=== PATIENT | female | born 1945 | race Caucasian/White ===

== ENCOUNTER → 2019-05-09 | Day surgery (SDC) | payer MEDICARE, OTHER ==
--- NOTE | 2019-05-08 04:55 | Pre Op History & Physical ---
DATE OF SURGERY: May 10, 2019. CHIEF COMPLAINT: Lesion in the soft palate and rule out Sjogren syndrome. HISTORY OF PRESENT ILLNESS: This 74-year-old female was noted to have a lesion in the soft palate for about three months. Lesion has been increasing in size and painful. The patient denies any trauma to that area. The patient is complaining of dysphagia with no odynophagia. She has been treated with different antibiotics including Zithromax, Flagyl, Medrol Dosepak and also Diflucan with no improvement. The patient also has history of fibromyalgia with history of dry eyes. CT scan of the neck that was done showed no obvious abnormality. The patient smokes a few cigars a day and is a social drinker. On examination, patient's vital signs were within normal limits. REVIEW OF SYSTEMS: System review showed no recent cardiovascular, respiratory, or GI problem. PAST MEDICAL HISTORY: The patient has a history of peptic ulcer disease, hypertension. She has a history of skin cancer removed. PAST SURGICAL HISTORY: The patient has previous C-spine surgery, lumbar spine surgery, foot and ankle surgery, hysterectomy, bladder suspension, appendectomy, and cholecystectomy. ALLERGIES: THE PATIENT IS ALLERGIC TO DEMEROL, CODEINE, PENICILLIN, AND SULFA. MEDICATIONS: She is on Prilosec, Celexa, amlodipine. SOCIAL HISTORY: She smokes a few cigars a day and is a social drinker. FAMILY HISTORY: Noncontributory. PHYSICAL EXAMINATION: VITAL SIGNS: On examination, patient's vital signs were within normal limits. HEENT: Ear exam showed normal tympanic membranes bilaterally. Nasal exam show deviated nasal septum to the left side about 30%. Oropharynx and oral cavity showed the patient has a lesion in the soft palate, paramedian on the right side about a cm in diameter with a few lesions together. NECK: Showed no lymph node or thyroid palpable. CHEST: Showed good air entry bilaterally. CARDIOVASCULAR: Showed S1 and S2. No murmur noted. ASSESSMENT AND PLAN: Mrs. Pandya has a lesion in the soft palate, which is persistent and uncomfortable. The patient also has a history of dry eyes and dry mouth with fibromyalgia. The suggested treatment is biopsy of the minor salivary gland to rule out Sjogren syndrome. Suggested treatment is panendoscopy, excision biopsy of lesion of the soft palate with appropriate closure and biopsy of the minor salivary gland and other necessary procedure. Complication of procedure includes, but not limited to bleeding, infection, perforation of the esophagus, pneumomediastinum, mediastinitis, airway compromise, persistent recurrence of the problem. Alternatives will be continue observation, continue antibiotic therapy, biopsy of lesion in the office setting. The patient has elected to undergo surgical procedure. MD BUTCH Steinberg/ASHLEYL /[id number]
[~2019-05-09] MED LIST: AMLODIPINE BESY10 MG PO; ATORVASTATIN CA20 MG PO; BACLOFEN10 MG PO; CELEXA20 MG PO; DEXAMETHASONE SOD PHOS INJ 4 MG/ML VIAL ONE; FENTANYL CITRATE/PF 100MCG/2 ML INJ ONE; GLYCOPYRROLATE INJ 1MG/ 5 ML SYR ONE; LIDOCAINE 1% W/EPINEPHRINE 20 ML VIAL ONE; LIDOCAINE HCL 2% LOCAL INJ 5 ML SDV VIAL INJ ONE; MIDAZOLAM HCL 2 MG/2 ML VIAL ONE; NEOSTIGMINE 5 MG/5ML SYR ONE; ONDANSETRON HCL INJ 2MG/ML 2ML 2 MG/ML VIAL ONE; PRILOSEC OTC20 MG PO; PROMETHAZINE HCL (IM) 25 MG/ML VIAL ONE; PROPOFOL IV EMULSION 10 MG/ML 20 ML VIAL ONE; ROCURONIUM BROMIDE 10 MG/ML 5ML VIAL ONE; SEVOFLURANE INHAL SOLN 250 ML PEN BTL ONE; TETRACYCLINE H250 MG PO
--- OUTSIDE RECORDS SUMMARY | 2019-05-09 08:41 | XMS REPORT ---
Author Author [facility] Address Unknown Phone Unavailable Care Team Providers Care Technical System Analyst Name Role Phone MaxxPeng collins Unavailable Unavailable Danitza Posey Unavailable Unavailable Viji, Devon Unavailable Unavailable Russel Stephenie Unavailable Unavailable Kevin Mckeon Unavailable Unavailable Moustapha Segura Unavailable Unavailable Irabadriel, FNPC Alisa Unavailable Unavailable Earl Nelson Unavailable Unavailable Benja Liu Unavailable Unavailable Talib Monet Unavailable Unavailable Luz Lopez Unavailable Unavailable Problems This patient has no known problems. Allergies, Adverse Reactions, Alerts This patient has no known allergies or adverse reactions. Medications This patient has no known medications. Results Test Description Test Time Test Comments Text Results Atomic Results Result Comments Comprehensive metabolic panel 2019-05-03 16:19:00 Serum or plasma sodium measurement (moles/volume) (test vqtm=8214-9) 143 mmol/L 136-145 Potassium [Moles/volume] in Serum or Plasma (test kjwg=2266-4) 3.8 mmol/L 3.5-5.1 Chloride [Moles/volume] in Serum or Plasma (test wsgv=6224-8) 107 mmol/L 98-107 Carbon dioxide, total [Moles/volume] in Serum or Plasma (test abxe=2304-8) 28 mmol/L 21-32 Glucose [Mass/volume] in Serum or Plasma (test oupj=7694-3) 94 mg/dL 74-106 Urea nitrogen [Mass/volume] in Serum or Plasma (test wxne=4824-1) 15 mg/dL 7-18 Creatinine [Mass/volume] in Serum or Plasma (test ofij=0385-8) 0.93 mg/dL 0.55-1.3 Glomerular Filtration Rate (test code=GFR) 59 mL =/>90 FOR CHRONIC KIDNEY DISEASE: GFR STAGE DESCRIPTION=/>90 STAGE 1 NORMAL--OR-- MINIMAL KIDNEY DAMAGE WITH NORMAL GFR 60-89 STAGE 2 MILD DECREASE IN GFR 30-59 STAGE 3 MODERATE DECREASE IN GFR 15-29 STAGE 4 SEVERE DECREASE IN GFR <15 STAGE 5 KIDNEY FAILURE The Glomerular Filtration Rate (GFR) has been calculated using the IDMS-Traceable MDRD Study Equation. Aspartate aminotransferase [Enzymatic activity/volume] in Serum or Plasma by With P-5 (test ystt=68313-9) 14 U/L 15-37 Alanine aminotransferase [Enzymatic activity/volume] in Serum or Plasma by With P-5'- (test zeta=3756-4) 18 U/L 12-78 Alkaline phosphatase [Enzymatic activity/volume] in Serum or Plasma (test tepm=7491-8) 89 U/L 45-117 Bilirubin.total [Mass/volume] in Serum or Plasma (test lmjg=1409-5) 0.4 mg/dL 0.2-1.0 Calcium [Mass/volume] in Serum or Plasma (test oqde=75929-3) 9.0 mg/dL 8.5-10.1 Protein [Mass/volume] in Serum or Plasma (test pqzd=3323-4) 7.3 g/dL 6.4-8.2 Albumin [Mass/volume] in Serum or Plasma by Bromocresol purple (BCP) dye binding meth (test rret=00704-9) 3.9 g/dL 3.4-5.0 Globulin (test code=GLOB) 3.4 g/dL 2.3-3.5 Albumin/Globulin Ratio (test code=A/G) 1.1 1.1-1.8 Prothrombin time (PT) with international normalized ratio (INR)2019-05-03 16:00:00* Test Item Value Reference Range Comments PT Prothrombin Time (test code=PROTIME) 13.0 s 9.5-12.5 INR in Blood by Coagulation assay (test dkud=32427-8) 1.11 Monitor pts using INR value (not prothrombin time) INR Coumadin Therapy: Low Range (prophylaxis) 2.0-3.0 High Range (high risk of clot formation) 2.5-3.5 PTT, Activated Partial Iuiigb4008-15-13 16:00:00* Test Item Value Reference Range Comments PTT, Activated Partial Thromb (test code=PTT) 32.1 s 24.3-36.9 Complete blood count (CBC) with automated white blood cell (WBC) differential 2019-05-03 15:50:00* Test Item Value Reference Range Comments White blood cell count (test exce=TDM5180) 10.8 4.3-10.9 Blood erythrocytes count (number/volume) (test dhmx=41983-2) 4.10 M/ul 3.86-4.86 Hemoglobin measurement (test dqqf=ASV1999) 11.7 g/dL 12.0-15.0 Blood hematocrit (volume fraction) (test pern=58841-1) 34.6 % 36.0-45.0 MCV (test zspp=WDI3451) 84.4 fL 80-100 28.6 MCHC (test code=MCHC) 33.9 g/dL 32.0-36.0 Platelets (test code=PLT) 266 152-406 Red Cell Distribution Width (test code=RDW) 15.0 % 12.1-15.2 Blood platelet mean volume (test wzjw=67090-6) 8.4 fL 7.6-11.3 Neutrophils % (test code=ALVIN%) 66.3 % 41.7-73.7 Lymphocytes/leuk NFr Bld (test ajwu=30035-4) 24.4 % 15.3-44.8 Monocyte percentage (test tytq=VVA7943) 7.4 % 3.3-12.3 1.4 Basophil % (test tsad=05704-3) 0.5 % 0-1.3 Absolute neutrophil count (test miou=ONR4922) 7.2 1.8-8.0 Absolute lymphocyte count (test niqq=48355-3) 2.6 0.7-4.9 Absolute monocyte count (test xrim=SOA1831) 0.8 0.1-1.3 Absolute Eosinophils (test code=EOA) 0.2 0-0.5 Absolute Basophils (test code=BASA) 0.1 0-0.5 Magnesium [Mass/volume] in Serum or Yvtpkt4540-27-49 16:17:00* Test Item Value Reference Range Comments Magnesium [Mass/volume] in Serum or Plasma (test dcwp=72832-4) 2.0 mg/dL 1.8-2.4 Vitamin B12 Dsnmh1442-13-57 16:17:00* Test Item Value Reference Range Comments Vitamin B12 Level (test code=B12) 566 pg/mL 193-986 Anaerobic uhgzlxd9114-45-86 10:02:00Primary Language Bahamian Comment PERIRECTAL ABSCESWSNO ANAEROBES GROWN.^NO ANAEROBES GROWN.^LGram gnpkl7164-14-00 10:02:00* Test Item Value Reference Range Comments NO ORGANISMS SEEN (test code=NO ORGAN) . NO WBCS SEEN (test code=NO WBCS) . Primary Language Bahamian Comment PERIRECTAL ABSCESWSBacterial culture w ID 2019-04-07 08:33:00* Test Item Value Reference Range Comments Bacterial culture w ID (test vrcs=1880-5) 1+MIXED SKIN KAPIL. Primary Language Bahamian Comment PERIRECTAL ABSCESSSoft Tissue Neck W/Contr 2019-04-06 13:43:00[facility] [place] [address] [facility] REPORT Name: ERICA KWONG Acct Number: [id number] :1945 Age:74 Sex:F Ord Phys: Peng Steele MD Unit Number: [id number] [facility] Dr: Status: REG REF RAD Exam Date: 04/06/19 EXAM DESCRIPTION: CT - Soft Tissue Neck W/Contr CLINICAL HISTORY: R22.0 COMPARISON: Soft Tissue Neck W/Contr dated 03/01/2019; CT HEAD CSPINE MPR WO CONTRAST dated 05/23/[address] scans are performed using dose optimization technique as appropriate and may include automated exposure control or mA/KV adjustment according to patient size. FINDINGS: Nasopharyngeal tissues are normal in appearance. Fossa Rosenmller are normal. Parapharyngeal fat triangles are symmetric. Tongue base structures are normal. Clinical history indicates presence nodules along the roof of the mouth. The roof of the mouth is limited in assessment on the study due to dental hardware streak artifact, however no gross abnormality is discerned in the region. The hard palate appears normal. Epiglottis and aryepiglottic folds are normal. Piriform sinuses are well aerated. The vocal cords are normal in appearance. Thyroid gland is normal in size. Salivary glands are normal in appearance. A BB marker is seen al anibal the left aspect of the neck correlating to the left parotid gland. There is no abnormality within the parotid gland seen. A few mildly prominent jugul odigastric chain lymph nodes are present. Upper lung hanley appear mildly emphys ematous but clear. No worrisome bone finding. Cervical hardware plate is p resent. IMPRESSION: BB marker is been placed by technologist along the le ft aspect of the neck at the site of clinical concern, demonstrating no patholog ic finding in the region. A normal size and appearance of left parotid gland is seen in this region. Suboptimal visualization of the roof of the mouth due to streak artifact from dental hardware. Grossly, no aggressive abnormality is seen in the region. The hard palate appears normal. Signed By: Marsha Vargas MD Signed AT: 04/06/19 1343 Basic Metabolic Lpbxw9700-75-36 11:10:00* Test Item Value Reference Range Comments Serum or plasma sodium measurement (moles/volume) (test rhpj=8489-9) 144 mmol/L 136-145 Potassium [Moles/volume] in Serum or Plasma (test iuan=9489-0) 3.9 mmol/L 3.5-5.1 Chloride [Moles/volume] in Serum or Plasma (test bogw=1707-9) 109 mmol/L 98-107 Carbon dioxide, total [Moles/volume] in Serum or Plasma (test vyep=5504-3) 29 mmol/L 21-32 Glucose [Mass/volume] in Serum or Plasma (test ysjp=6292-5) 118 mg/dL 74-106 Urea nitrogen [Mass/volume] in Serum or Plasma (test pgmo=7734-6) 13 mg/dL 7-18 Creatinine [Mass/volume] in Serum or Plasma (test pcjr=1011-7) 0.96 mg/dL 0.55-1.3 Glomerular Filtration Rate (test code=GFR) 57 mL =/>90 FOR CHRONIC KIDNEY DISEASE: GFR STAGE DESCRIPTION=/>90 STAGE 1 NORMAL--OR-- MINIMAL KIDNEY DAMAGE WITH NORMAL GFR 60-89 STAGE 2 MILD DECREASE IN GFR 30-59 STAGE 3 MODERATE DECREASE IN GFR 15-29 STAGE 4 SEVERE DECREASE IN GFR <15 STAGE 5 KIDNEY FAILURE The Glomerular Filtration Rate (GFR) has been calculated using the IDMS-Traceable MDRD Study Equation. Calcium [Mass/volume] in Serum or Plasma (test nmye=66675-0) 9.0 mg/dL 8.5-10.1 Primary Language EnglishComplete blood count (CBC) with automated white blood cell (WBC) shbkitzzgwao0355-70-41 10:59:00* Test Item Value Reference Range Comments White blood cell count (test vehe=XFP8719) 8.4 4.3-10.9 Blood erythrocytes count (number/volume) (test mrnb=74259-3) 4.03 M/ul 3.86-4.86 Hemoglobin measurement (test ekjf=KZC3082) 11.3 g/dL 12.0-15.0 Blood hematocrit (volume fraction) (test fboi=73525-7) 34.5 % 36.0-45.0 MCV (test mxit=QZO0334) 85.6 fL 80-100 28.1 MCHC (test code=MCHC) 32.8 g/dL 32.0-36.0 Platelets (test code=PLT) 230 152-406 Red Cell Distribution Width (test code=RDW) 14.9 % 12.1-15.2 Blood platelet mean volume (test wonf=34508-9) 8.4 fL 7.6-11.3 Neutrophils % (test code=ALVIN%) 62.7 % 41.7-73.7 Lymphocytes/leuk NFr Bld (test cluv=06164-2) 24.6 % 15.3-44.8 Monocyte percentage (test hvit=APO1737) 10.4 % 3.3-12.3 1.8 Basophil % (test juvs=50932-0) 0.5 % 0-1.3 Absolute neutrophil count (test amcm=YWR5627) 5.3 1.8-8.0 Absolute lymphocyte count (test jdtl=45214-8) 2.1 0.7-4.9 Absolute monocyte count (test saim=CFG8130) 0.9 0.1-1.3 Absolute Eosinophils (test code=EOA) 0.1 0-0.5 Absolute Basophils (test code=BASA) 0.0 0-0.5 Primary Language EnglishColony zjfeb2891-11-93 08:02:00<10,000 CFU/ML.^<10,000 CFU/ML.^LUrine pfrbnda3879-46-95 08:02:00MIXED KAPIL.^MIXED KAPIL.^LUrinalysis with naixzgiice7906-54-52 19:11:00* Test Item Value Reference Range Comments Urine color (test nkbf=2970-4) YELLOW Urine appearance determination (test lecf=1598-7) CLEAR Urine specific gravity measurement (test lvxe=6906-6) 1.015 1.005-1.030 Urine glucose detection (test zgnq=4475-3) Negative NEG Urine bilirubin detection (test pelw=6703-6) Negative NEG Urine Ketones (test code=UKET) NEGATIVE NEG Urine blood detection (test fdve=02198-4) Negative NEG Urine pH (test gzrf=5726-8) 7.0 5.0-7.0 Urinalysis with microscopy (test zbwk=79273-5) NEGATIVE NEG Urine urobilinogen detection (test vvfv=79244-4) 0.2 0.2-1.0 Urine Nitrate (test code=UNIT) NEGATIVE NEG Urine Leukocyte Esterase (test code=UESTR) 2+ NEG Urine WBC (test code=UWBC) 20-50 <5 Urine sediment erythrocyte count by microscopy (number/high power field) (test cxgg=38253-8) <5 NONE SEEN Bacteria detection in urine sediment by light microscopy (test bwpc=86123-4) 20-50 <20 Sqamous Epithelial (test code=SQEP) 5-10 NONE SEEN Urinalysis with reflex to culture (test oerw=68905-8) NOT NEEDED Culture was ordered previously. Comprehensive metabolic lbxry5744-10-97 17:26:00* Test Item Value Reference Range Comments Serum or plasma sodium measurement (moles/volume) (test yslx=6857-1) 140 mmol/L 136-145 Potassium [Moles/volume] in Serum or Plasma (test mxll=0204-7) 4.2 mmol/L 3.5-5.1 Chloride [Moles/volume] in Serum or Plasma (test shtp=1191-7) 107 mmol/L 98-107 Carbon dioxide, total [Moles/volume] in Serum or Plasma (test ghvz=4492-5) 29 mmol/L 21-32 Glucose [Mass/volume] in Serum or Plasma (test rwph=2268-6) 84 mg/dL 74-106 Urea nitrogen [Mass/volume] in Serum or Plasma (test mdnq=1164-2) 17 mg/dL 7-18 Creatinine [Mass/volume] in Serum or Plasma (test efev=8820-7) 1.04 mg/dL 0.55-1.3 Glomerular Filtration Rate (test code=GFR) 52 mL =/>90 FOR CHRONIC KIDNEY DISEASE: GFR STAGE DESCRIPTION=/>90 STAGE 1 NORMAL--OR-- MINIMAL KIDNEY DAMAGE WITH NORMAL GFR 60-89 STAGE 2 MILD DECREASE IN GFR 30-59 STAGE 3 MODERATE DECREASE IN GFR 15-29 STAGE 4 SEVERE DECREASE IN GFR <15 STAGE 5 KIDNEY FAILURE The Glomerular Filtration Rate (GFR) has been calculated using the IDMS-Traceable MDRD Study Equation. Aspartate aminotransferase [Enzymatic activity/volume] in Serum or Plasma by With P-5 (test adsr=12997-1) 17 U/L 15-37 Alanine aminotransferase [Enzymatic activity/volume] in Serum or Plasma by With P-5'- (test gmnc=7040-0) 22 U/L 12-78 Alkaline phosphatase [Enzymatic activity/volume] in Serum or Plasma (test omir=8669-3) 87 U/L 45-117 Bilirubin.total [Mass/volume] in Serum or Plasma (test upyo=6957-7) 0.3 mg/dL 0.2-1.0 Calcium [Mass/volume] in Serum or Plasma (test mabw=08619-3) 8.7 mg/dL 8.5-10.1 Protein [Mass/volume] in Serum or Plasma (test qhby=4252-2) 6.8 g/dL 6.4-8.2 Albumin [Mass/volume] in Serum or Plasma by Bromocresol purple (BCP) dye binding meth (test sunq=26607-0) 3.4 g/dL 3.4-5.0 Globulin (test code=GLOB) 3.4 g/dL 2.3-3.5 Albumin/Globulin Ratio (test code=A/G) 1.0 1.1-1.8 Total iron binding capacity and transferrin saturation hctuhahfwxr4267-87-74 17:26:00* Test Item Value Reference Range Comments Iron [Mass/volume] in Serum or Plasma (test malr=5360-3) 111.0 ug/dL 50-170 Iron Binding (test code=IBCT) 445 ug/dL 250-460 Transferrin [Mass/volume] in Serum or Plasma (test dbbl=4750-4) 318 mg/dL 200-360 % Transferrin Saturation (test code=%SAT) 24.9 % 20.0-50.0 Ferritin [Mass/volume] in Serum or Wczxtt1856-00-05 17:26:00* Test Item Value Reference Range Comments Ferritin [Mass/volume] in Serum or Plasma (test woer=7161-8) 27.7 ng/mL 8-388 Folate [Mass/volume] in Serum or Wzyqmy1239-09-26 17:26:00* Test Item Value Reference Range Comments Folate [Mass/volume] in Serum or Plasma (test oqkk=1430-3) 18.8 ng/mL 3.1-17.5 Vitamin B12 Ewslw6405-95-89 17:26:00* Test Item Value Reference Range Comments Vitamin B12 Level (test code=B12) 461 pg/mL 193-986 Chest Pa And Lat (2 Views)2019-03-08 17:05:00[facility] [place] [address] RAD[facility]OLOGY SERVICES REPORT Name: ERICA KWONG Acct Number: [id number] :1945 Age:74 Sex:F Ord Phys: Stephenie Goode ACTUARIAL DIRECTOR Unit Number: [id number] [facility] [address]: Status: REG REF LAB Exam Date: 03/08/19 EXAM DESCRIPTION: RAD - Chest Pa And Lat (2 Views) - 03/08/2019 4:46 pm CLINICAL HISTORY: F17.200 Chest pain. COMPARISON: <Comparisons> FINDINGS: The lungs are emphysematous but clear. The heart is mildly enlarged in size. No displaced fractures. IMPRESSION: Prominent COPD. Signed By: Andry Vargas MD Signed AT: 03/08/19 4826 Complete blood count (CBC) with automated white blood cell (WBC) zfdamuutihcz9982-82-23 16:48:00* Test Item Value Reference Range Comments White blood cell count (test bfue=QSI0101) 9.0 4.3-10.9 Blood erythrocytes count (number/volume) (test kpzz=15137-3) 4.01 M/ul 3.86-4.86 Hemoglobin measurement (test gglm=UKB7479) 11.7 g/dL 12.0-15.0 Blood hematocrit (volume fraction) (test wcuo=20356-9) 35.1 % 36.0-45.0 MCV (test sqdi=DLK0579) 87.5 fL 80-100 29.2 MCHC (test code=MCHC) 33.4 g/dL 32.0-36.0 Platelets (test code=PLT) 267 152-406 Red Cell Distribution Width (test code=RDW) 14.1 % 12.1-15.2 Blood platelet mean volume (test dann=87900-9) 8.5 fL 7.6-11.3 Neutrophils % (test code=ALVIN%) 59.1 % 41.7-73.7 Lymphocytes/leuk NFr Bld (test aoro=42743-5) 27.6 % 15.3-44.8 Monocyte percentage (test wdih=NOY8191) 10.8 % 3.3-12.3 1.7 Basophil % (test tdaj=40386-1) 0.8 % 0-1.3 Absolute neutrophil count (test gizk=SUW7306) 5.3 1.8-8.0 Absolute lymphocyte count (test dryv=04458-8) 2.5 0.7-4.9 Absolute monocyte count (test wnyv=SAC0360) 1.0 0.1-1.3 Absolute Eosinophils (test code=EOA) 0.2 0-0.5 Absolute Basophils (test code=BASA) 0.1 0-0.5 Soft Tissue Neck W/Jypus8579-56-63 19:44:00[place] [address] RADIOLOGY SERVICES REPORT Name: ERICA KWONG Acct Number: [id number] :1945 Age:74 Sex:F Ord Phys: Derek Modi Unit Number: [id number] [facility] Dr: Dario Posey MD Status: REG ER Exam Date: 03/01/19 EXAM DESCRIPTION: CT - Soft Tissue Neck W/Contr CLINICAL HISTORY: recent cervical surgery. Dyspagia COMPARISON: <Comparisons> TECHNIQUE All CT scans are performed using dose optimization technique as appropriate and may include automated exposure control or mA/KV adjustment according to patient size. FINDINGS: Nasopharyngeal tissues are normal in appearance. Fossa Rosenmller are normal. No intrinsic or extrinsic neck mass is identified. Salivary glands are symmetric. No abscess or drainable fluid collections. The visualized paranasal sinuses and mastoids are clear. ACDF changes are present at C5-6. IMPRESSION: No acute neck abnormality is identified. Signed By: Andry Vargas MD Signed AT: 03/01/191943 Basic Metabolic Hdhsg1287-82-72 18:43:00* Test Item Value Reference Range Comments Serum or plasma sodium measurement (moles/volume) (test mkpg=8884-9) 141 mmol/L 136-145 Potassium [Moles/volume] in Serum or Plasma (test yodd=7430-4) 4.1 mmol/L 3.5-5.1 Chloride [Moles/volume] in Serum or Plasma (test iiaq=6171-0) 110 mmol/L 98-107 Carbon dioxide, total [Moles/volume] in Serum or Plasma (test qqbw=0577-7) 23 mmol/L 21-32 Glucose [Mass/volume] in Serum or Plasma (test dghl=9177-6) 163 mg/dL 74-106 Urea nitrogen [Mass/volume] in Serum or Plasma (test zlhd=1912-3) 16 mg/dL 7-18 Creatinine [Mass/volume] in Serum or Plasma (test rded=3106-8) 0.98 mg/dL 0.55-1.3 Glomerular Filtration Rate (test code=GFR) 56 mL =/>90 FOR CHRONIC KIDNEY DISEASE: GFR STAGE DESCRIPTION=/>90 STAGE 1 NORMAL--OR-- MINIMAL KIDNEY DAMAGE WITH NORMAL GFR 60-89 STAGE 2 MILD DECREASE IN GFR 30-59 STAGE 3 MODERATE DECREASE IN GFR 15-29 STAGE 4 SEVERE DECREASE IN GFR <15 STAGE 5 KIDNEY FAILURE The Glomerular Filtration Rate (GFR) has been calculated using the IDMS-Traceable MDRD Study Equation. Calcium [Mass/volume] in Serum or Plasma (test gbso=98878-1) 8.6 mg/dL 8.5-10.1 Comment Bed:25Complete blood count (CBC) with automated white blood cell (WBC) njtikqkyxmvh0335-67-06 18:38:00* Test Item Value Reference Range Comments White blood cell count (test vuju=EGY9134) 9.7 4.3-10.9 Blood erythrocytes count (number/volume) (test tenb=59007-2) 4.22 M/ul 3.86-4.86 Hemoglobin measurement (test huqe=DSH1290) 12.3 g/dL 12.0-15.0 Blood hematocrit (volume fraction) (test xuxf=21156-2) 36.5 % 36.0-45.0 MCV (test qetj=DZN5710) 86.5 fL 80-100 29.2 MCHC (test code=MCHC) 33.7 g/dL 32.0-36.0 Platelets (test code=PLT) 309 152-406 Red Cell Distribution Width (test code=RDW) 14.4 % 12.1-15.2 Blood platelet mean volume (test xgwj=35908-1) 8.8 fL 7.6-11.3 Neutrophils % (test code=ALVIN%) 81.2 % 41.7-73.7 Lymphocytes/leuk NFr Bld (test mvey=18671-5) 14.9 % 15.3-44.8 Monocyte percentage (test iwjr=1034-5) 3.6 % 3.3-12.3 Eosinophil % (test xlrv=422-7) 0.0 % 0-4.4 Basophil % (test jdlv=28826-1) 0.3 % 0-1.3 Absolute neutrophil count (test bqbs=GUN2103) 7.8 1.8-8.0 Absolute lymphocyte count (test ozfz=97179-5) 1.4 0.7-4.9 Absolute monocyte count (test kghs=NZI7510) 0.4 0.1-1.3 Absolute Eosinophils (test code=EOA) 0.0 0-0.5 Absolute Basophils (test code=BASA) 0.0 0-0.5 HCV w/reflex HDY6010-47-98 12:34:00* Test Item Value Reference Range Comments Hepatitis C Antibody (test code=ANTI-HEPC) Nonreactive Nonreactive Hepatitis C Ab Signal/Cutoff (test code=ANTI-SIGNAL) 0.01 <1.00 HCV antibody was Nonreactive. There is no laboratory evidence of HCV infection. In most cases, no further action is required. However, if recent HCV exposure is suspected, a test for HCV RNA (test code 58940) is suggested. For additional information please refer to http://education.[employer]/faq/YTR06i8 (This link is being provided for informational/ educational purposes only.) HCV ADD PCR (test code=HCV +PCR) Not indicated Norman hampd6532-95-10 08:34:00BETWEEN 10,000 & 100,000 CFU/ML^BETWEEN 10,000 & 100,000 CFU/ML^LUrine fcdsygl5685-61-71 08:34:00MIXED KAPIL.^MIXED KAPIL.^L Hemoglobin A1c/Hemoglobin.total in Drylj9449-34-47 17:25:00* Test Item Value Reference Range Comments Hemoglobin A1c/Hemoglobin.total in Blood (test pkdx=6264-7) 6.1 % 4.2-6.3 *Heavy or chronic bleeding causing hemoglobin stores to be depleted may result in falsely low levels. *Iron Deficiency Anemia may result in falsely high levels. *Other forms of anemia, recent blood transfusions, and hemoglobin variants may result in spurious levels. Mhirjogbzq6780-16-45 15:47:00* Test Item Value Reference Range Comments Urine color (test ydrm=2118-8) YELLOW Urine appearance determination (test orma=8031-0) CLEAR Urine specific gravity measurement (test aars=5822-4) 1.020 1.005-1.030 Urine glucose detection (test qnem=9013-2) Negative NEG Urine bilirubin detection (test fghs=8208-5) Negative NEG Urine Ketones (test code=UKET) NEGATIVE NEG Urine blood detection (test sonr=55662-3) 1+ NEG Urine pH (test ramu=5242-7) 7.0 5.0-7.0 Urinalysis with microscopy (test ayxm=93781-3) NEGATIVE NEG Urine urobilinogen detection (test pimm=31001-7) 1.0 0.2-1.0 Urine Nitrate (test code=UNIT) NEGATIVE NEG Urine Leukocyte Esterase (test code=UESTR) 2+ NEG Microscopic examination of kxdve5531-48-70 15:47:00* Test Item Value Reference Range Comments Urine WBC (test code=UWBC) 5-10 <5 Urine sediment erythrocyte count by microscopy (number/high power field) (test hppp=01129-2) 5 NONE SEEN Bacteria detection in urine sediment by light microscopy (test ryug=82253-4) 20-50 <20 Sqamous Epithelial (test code=SQEP) 5-10 NONE SEEN Urinalysis with reflex to culture (test vgeh=38763-7) REFLEXED Mucus detection in urine sediment by light microscopy (test uwaq=5542-6) 1+ NONE SEEN Hyaline casts count in urine sediment by microscopy low power field (number/area) (test mfkc=8794-0) >10 NONE SEEN Comprehensive metabolic szchq0841-26-51 15:45:00* Test Item Value Reference Range Comments Serum or plasma sodium measurement (moles/volume) (test yfcc=7950-8) 141 mmol/L 136-145 Potassium [Moles/volume] in Serum or Plasma (test nckr=7886-0) 4.1 mmol/L 3.5-5.1 Chloride [Moles/volume] in Serum or Plasma (test olet=2721-3) 107 mmol/L 98-107 Carbon dioxide, total [Moles/volume] in Serum or Plasma (test ybti=3738-5) 28 mmol/L 21-32 Glucose [Mass/volume] in Serum or Plasma (test svrv=0248-2) 96 mg/dL 74-106 Urea nitrogen [Mass/volume] in Serum or Plasma (test yxqm=5096-1) 13 mg/dL 7-18 Creatinine [Mass/volume] in Serum or Plasma (test ucbw=6727-1) 1.04 mg/dL 0.55-1.3 Glomerular Filtration Rate (test code=GFR) 52 mL =/>90 FOR CHRONIC KIDNEY DISEASE: GFR STAGE DESCRIPTION=/>90 STAGE 1 NORMAL--OR-- MINIMAL KIDNEY DAMAGE WITH NORMAL GFR 60-89 STAGE 2 MILD DECREASE IN GFR 30-59 STAGE 3 MODERATE DECREASE IN GFR 15-29 STAGE 4 SEVERE DECREASE IN GFR <15 STAGE 5 KIDNEY FAILURE The Glomerular Filtration Rate (GFR) has been calculated using the IDMS-Traceable MDRD Study Equation. Aspartate aminotransferase [Enzymatic activity/volume] in Serum or Plasma by With P-5 (test pulr=94706-6) 18 U/L 15-37 Alanine aminotransferase [Enzymatic activity/volume] in Serum or Plasma by With P-5'- (test mnyn=2039-0) 23 U/L 12-78 Alkaline phosphatase [Enzymatic activity/volume] in Serum or Plasma (test bulh=8265-1) 96 U/L 45-117 Bilirubin.total [Mass/volume] in Serum or Plasma (test ixgx=9515-2) 0.4 mg/dL 0.2-1.0 Calcium [Mass/volume] in Serum or Plasma (test tppw=59971-7) 8.8 mg/dL 8.5-10.1 Protein [Mass/volume] in Serum or Plasma (test fdrd=0787-3) 7.5 g/dL 6.4-8.2 Albumin [Mass/volume] in Serum or Plasma by Bromocresol purple (BCP) dye binding meth (test smvi=97181-5) 3.7 g/dL 3.4-5.0 Globulin (test code=GLOB) 3.8 g/dL 2.3-3.5 Albumin/Globulin Ratio (test code=A/G) 1.0 1.1-1.8 Lipid bfnlmcb0931-85-95 15:45:00* Test Item Value Reference Range Comments Cholesterol [Mass/volume] in Serum or Plasma (test slfh=7056-3) 295 mg/dL <200 Triglyceride [Mass/volume] in Serum or Plasma (test ydie=7699-4) 156 mg/dL <150 Cholesterol in HDL [Mass/volume] in Serum or Plasma (test kmtn=4038-6) 58 mg/dL 40-60 Serum or plasma cholesterol in LDL measurement by calculation (mass/volume) (test smse=08970-7) 206 <130 This LDL is a calculated result; a more accurate analysis can be performed using the direct LDL methodology. Total cholesterol/cholesterol in HDL (percentile) (test tjmi=9267-4) 5.09 LIPID RISK RATIOS: 1/2 AVERAGE AVERAGE 2X AVERAGE 3X AVERAGE ------- MALE 3.43 4.97 9.55 23.39 FEMALE 3.27 4.44 7.05 11.04 Thyrotropin [Units/volume] in Serum or Plasma by Detection limit <=0.05 mIU/L 2019-02-21 15:45:00* Test Item Value Reference Range Comments Thyrotropin [Units/volume] in Serum or Plasma by Detection limit \T\lt;=0.05 mIU/L (test wmnz=37735-6) 1.690 [iU]/L 0.360-3.740 Complete blood count (CBC) with automated white blood cell (WBC) differential 2019-02-21 15:27:00* Test Item Value Reference Range Comments White blood cell count (test tjhi=WMT9866) 7.3 4.3-10.9 Blood erythrocytes count (number/volume) (test gary=37885-1) 4.25 M/ul 3.86-4.86 Hemoglobin measurement (test uvpm=DKE7529) 12.3 g/dL 12.0-15.0 Blood hematocrit (volume fraction) (test cfar=90511-4) 37.5 % 36.0-45.0 MCV (test abih=FGA8070) 88.1 fL 80-100 28.9 MCHC (test code=MCHC) 32.8 g/dL 32.0-36.0 Platelets (test code=PLT) 227 152-406 Red Cell Distribution Width (test code=RDW) 13.9 % 12.1-15.2 Blood platelet mean volume (test ddka=56380-2) 9.2 fL 7.6-11.3 Neutrophils % (test code=ALVIN%) 56.4 % 41.7-73.7 Lymphocytes/leuk NFr Bld (test shnl=32731-4) 31.5 % 15.3-44.8 Monocyte percentage (test axrn=9932-6) 9.1 % 3.3-12.3 Eosinophil % (test pquq=097-9) 2.4 % 0-4.4 Basophil % (test lyyh=05150-7) 0.6 % 0-1.3 Absolute neutrophil count (test pcta=AHH5984) 4.1 1.8-8.0 Absolute lymphocyte count (test dkav=20069-0) 2.3 0.7-4.9 Absolute monocyte count (test xrju=OBY7328) 0.7 0.1-1.3 Absolute Eosinophils (test code=EOA) 0.2 0-0.5 Absolute Basophils (test code=BASA) 0.0 0-0.5 Comprehensive metabolic zllzg0472-67-95 15:03:00* Test Item Value Reference Range Comments Serum or plasma sodium measurement (moles/volume) (test nvbi=1649-8) 142 mmol/L 136-145 Potassium [Moles/volume] in Serum or Plasma (test jfoa=0038-2) 4.0 mmol/L 3.5-5.1 Chloride [Moles/volume] in Serum or Plasma (test yehd=9124-1) 110 mmol/L 98-107 Carbon dioxide, total [Moles/volume] in Serum or Plasma (test bxuz=9241-4) 26 mmol/L 21-32 Glucose [Mass/volume] in Serum or Plasma (test aqlf=9912-3) 108 mg/dL 74-106 Urea nitrogen [Mass/volume] in Serum or Plasma (test wxwf=6047-2) 16 mg/dL 7-18 Creatinine [Mass/volume] in Serum or Plasma (test nied=4070-0) 0.90 mg/dL 0.55-1.3 Glomerular Filtration Rate (test code=GFR) 62 mL =/>90 FOR CHRONIC KIDNEY DISEASE: GFR STAGE DESCRIPTION=/>90 STAGE 1 NORMAL--OR-- MINIMAL KIDNEY DAMAGE WITH NORMAL GFR 60-89 STAGE 2 MILD DECREASE IN GFR 30-59 STAGE 3 MODERATE DECREASE IN GFR 15-29 STAGE 4 SEVERE DECREASE IN GFR <15 STAGE 5 KIDNEY FAILURE The Glomerular Filtration Rate (GFR) has been calculated using the IDMS-Traceable MDRD Study Equation. Aspartate aminotransferase [Enzymatic activity/volume] in Serum or Plasma by With P-5 (test lqnz=21913-9) 20 U/L 15-37 Alanine aminotransferase [Enzymatic activity/volume] in Serum or Plasma by With P-5'- (test xlti=6687-3) 27 U/L 12-78 Alkaline phosphatase [Enzymatic activity/volume] in Serum or Plasma (test nkmu=4873-8) 91 U/L 45-117 Bilirubin.total [Mass/volume] in Serum or Plasma (test fdms=2068-2) 0.4 mg/dL 0.2-1.0 Calcium [Mass/volume] in Serum or Plasma (test ybow=71781-1) 8.5 mg/dL 8.5-10.1 Protein [Mass/volume] in Serum or Plasma (test tgan=4014-2) 7.0 g/dL 6.4-8.2 Albumin [Mass/volume] in Serum or Plasma by Bromocresol purple (BCP) dye binding meth (test wngy=39993-4) 3.7 g/dL 3.4-5.0 Globulin (test code=GLOB) 3.3 g/dL 2.3-3.5 Albumin/Globulin Ratio (test code=A/G) 1.1 1.1-1.8 Complete blood count (CBC) with automated white blood cell (WBC) differential 2019-01-11 14:46:00* Test Item Value Reference Range Comments White blood cell count (test qrbw=LII0873) 6.1 4.3-10.9 Blood erythrocytes count (number/volume) (test vmbc=08678-7) 3.98 M/ul 3.86-4.86 Hemoglobin measurement (test xmuy=LRB9824) 11.8 g/dL 12.0-15.0 Blood hematocrit (volume fraction) (test vini=45669-6) 35.0 % 36.0-45.0 MCV (test antu=RPN8550) 88.0 fL 80-100 29.6 MCHC (test code=MCHC) 33.6 g/dL 32.0-36.0 Platelets (test code=PLT) 229 152-406 Red Cell Distribution Width (test code=RDW) 14.5 % 12.1-15.2 Blood platelet mean volume (test unin=67891-3) 8.7 fL 7.6-11.3 Neutrophils % (test code=ALVIN%) 53.9 % 41.7-73.7 Lymphocytes/leuk NFr Bld (test irsk=24005-1) 33.3 % 15.3-44.8 Monocyte percentage (test opqt=4377-0) 9.3 % 3.3-12.3 Eosinophil % (test hwwt=474-3) 3.0 % 0-4.4 Basophil % (test atcf=27987-0) 0.5 % 0-1.3 Absolute neutrophil count (test nlfq=466-9) 3.3 1.8-8.0 Absolute lymphocyte count (test jfuw=51166-7) 2.0 0.7-4.9 Absolute monocyte count (test lftw=848-4) 0.6 0.1-1.3 Absolute Eosinophils (test code=EOA) 0.2 0-0.5 Absolute Basophils (test code=BASA) 0.0 0-0.5 Knee Right 3 Raec8273-28-17 13:43:00[place] [address] [facility] REPORT Name: ERICA KWONG ISATU Acct Number: [id number] :1945 Age:73 Sex:F Ord Phys: Dario Posey MD Unit Number: [id number] [facility] Dr: Status: REG REF RAD Exam Date: 01/11/19 EXAM DESCRIPTION: RAD - Knee Right 3 View - 01/11/2019 1:38 pm CLINICAL HISTORY: M15.0 COMPARISON: No comparisons FINDINGS: Mild medial compartment space narrowing is present compatible with mild osteoarthritic changes. No fracture, dislocation or AVN. Signed By: Andry Vargas MD Signed AT: 01/11/19 1343 Knee Left 3 View 2019-01-11 13:43:00[place] [address] [facility] REPORT Name: ERICA KWONG Acct Number: [id number] :1945 Age:73 Sex:F Ord Phys: Dario Posey MD Unit Number: [id number] [facility] Dr: Status: REG REF RAD Exam Date: 01/11/19 EXAM DESCRIPTION: RAD - Knee Left 3 View - 01/11/2019 1:38 pm CLINICAL HISTORY: M15.0 COMPARISON: No comparisons FINDINGS: Mild medial compartment space narrowing is present compatible with mild osteoarthritic changes. No fracture, dislocation or AVN. Signed By: Andry Vargas MD Signed AT: 01/11/19 1344 Hip Right 2 View 2019-01-11 13:42:00[place] [address] [facility] REPORT Name: ERICA KWONG Acct Number: [id number] :1945 Age:73 Sex:F Ord Phys: Dario Posey MD Unit Number: [id number] [facility] Dr: Status: REG REF RAD Exam Date: 01/11/19 EXAM DESCRIPTION: RAD - Hip Right 2 View - 01/11/2019 1:36 pm CLINICAL HISTORY: M15.0 COMPARISON: No comparisons FINDINGS: Mild arthritic changes involve the right hip. No fracture, dislocation or AVN. Signed By: Andry Vargas MD Signed AT: 01/11/19 1343 C Spine Wo Lcfb2964-65-51 16:48:00[facility] [place] [address] [facility] REPORT Name: ERICA KWONG Acct Number: [id number] :1945 Age:73 Sex:F Ord Phys: Ari Segura MD Unit Number: [id number] [facility] Dr: Status: REG REF RAD Exam Date: 12/30/18 EXAM DESCRIPTION: MRI - C Spine Wo Cont- 12/30/2018 4:36 pm CLINICAL HISTORY: M47.22 COMPARISON: C Spine Wo Cont dated 07/06/2017; MRICERVICAL SPINE W O CONTR dated 01/29/2015 FINDINGS: Cervical vertebral bodies are normal in height and alignment. No suspicious marrow edema or marrow replacing process. No fracture or traumatic subluxation. The craniocervical junction is normal. C2-3 level: No significant findings. C3-4 level: Small posterior osteophyte/ disc complex is present attenuating the anterior subarachnoid space and contacting the cord. Left-sided uncovertebral spurring mildly narrows the left exit foramen. C4-5 level: Mild posterior osteophyte/disc complex is present with bilateral uncovertebral facet hypertrophy, mildly narrowing the right exit foramen. C5-6 level: Moderate osteophyte/disc complex is present with 5 mm central disc herniation again seen. Contact with the anterior cord is seen with cord flattening. Moderate narrowing the central canal. Uncovertebral spurring bilaterally narrows both exit foramina mildly. C6-7 level: Mild concentric disc bulge. C7-T1 level: No significant findings. Cervical cord is normal in size and signal. IMPRESSION: Prominent C5-6 spondylosis is again seen, similar in severity relative to the 2017 comparative study. Signed By: Andry Vargas MD Signed AT: 12/30/18 1649 C Spine Comp W/Flex Awivz8099-59-10 14:43:00[facility] [place] [address] [facility] REPORT Name: ERICA KWONG Acct Number: [id number] :1945 Age:73 Sex:F Ord Phys: Ari Segura MD Unit Number: [id number] [facility] [address]: Status: REG REF RAD Exam Date: 12/26/18 EXAM DESCRIPTION: RAD - C Spine Comp W/Flex Exten - 12/26/2018 2:14 pm CLINICAL HISTORY: M47.22 COMPARISON: Cervical spine May 2018 FINDINGS: Cervical bodies are normal in height and alignment. No fracture or acute bony process seen. C5-6 disc space narrowing and endplate spurring are similar to the comparison. Moderately prominent facet joint degenerative change present C4-C7 also unchanged. There is no prevertebral soft tissue thickening or other suspicious soft tissue finding. Lateral flexion/extension view show no abnormal movement of the vertebrae. IMPRESSION: Prominent cervical spine degenerative change at the C5-6 disc level similar to the comparison study. No fracture or acute finding seen. No movement abnormality seen with flexion/ extension positioning. Signed By: Osmar Hines MD Signed AT: 12/26/18 1443 [place] dpffa4530-62-83 08:08:00BETWEEN 10,000 & 100,000 CFU/ML^BETWEEN 10,000 & 100,000 CFU/ML^LUrine xdqubto1422-38-86 08:08:00* Test Item Value Reference Range Comments Urine culture (test atli=425-7) MIXED KAPIL. Slskoydprx5744-39-31 18:43:00* Test Item Value Reference Range Comments Urine color (test gahz=3244-8) YELLOW Urine appearance determination (test dsac=9265-7) CLEAR Urine specific gravity measurement (test nuhx=6359-0) <=1.005 1.005-1.030 Urine glucose detection (test iprz=7902-9) Negative NEG Urine bilirubin detection (test dgxr=8092-9) Negative NEG Urine Ketones (test code=UKET) NEGATIVE NEG Urine blood detection (test vlgb=83666-0) Negative NEG Urine pH (test fyzp=6904-7) 5.5 5.0-7.0 Urinalysis with microscopy (test eynd=66120-6) NEGATIVE NEG Urine urobilinogen detection (test aemp=29142-5) 0.2 0.2-1.0 Urine Nitrate (test code=UNIT) NEGATIVE NEG Urine Leukocyte Esterase (test code=UESTR) 3+ NEG FAX REPORT TO DR. POSEYMicroscopic examination of xydto6912-39-79 18:43:00* Test Item Value Reference Range Comments Urine WBC (test code=UWBC) 20-50 <5 Urine sediment erythrocyte count by microscopy (number/high power field) (test xseu=74218-3) <5 NONE SEEN Bacteria detection in urine sediment by light microscopy (test lsow=94791-2) 20-50 <20 Sqamous Epithelial (test code=SQEP) <5 NONE SEEN Urinalysis with reflex to culture (test bjuf=06800-7) REFLEXED Mucus detection in urine sediment by light microscopy (test capz=5330-1) 2+ NONE SEEN Urine urothelial cell detection (test hpnc=SUO4261) <5 NONE SEEN FAX REPORT TO DR. NICEomprehensive metabolic erdaq6361-93-14 17:52:00* Test Item Value Reference Range Comments Serum or plasma sodium measurement (moles/volume) (test pxhg=4920-2) 141 mmol/L 136-145 Potassium [Moles/volume] in Serum or Plasma (test rkzr=6587-6) 4.1 mmol/L 3.5-5.1 Chloride [Moles/volume] in Serum or Plasma (test wtfb=5841-2) 106 mmol/L 98-107 Carbon dioxide, total [Moles/volume] in Serum or Plasma (test oczz=2124-0) 28 mmol/L 21-32 Glucose [Mass/volume] in Serum or Plasma (test amtg=8571-2) 99 mg/dL 74-106 Urea nitrogen [Mass/volume] in Serum or Plasma (test vdlo=9070-3) 15 mg/dL 7-18 Creatinine [Mass/volume] in Serum or Plasma (test jikx=6464-7) 0.96 mg/dL 0.55-1.3 Glomerular Filtration Rate (test code=GFR) 57 mL =/>90 FOR CHRONIC KIDNEY DISEASE: GFR STAGE DESCRIPTION=/>90 STAGE 1 NORMAL--OR-- MINIMAL KIDNEY DAMAGE WITH NORMAL GFR 60-89 STAGE 2 MILD DECREASE IN GFR 30-59 STAGE 3 MODERATE DECREASE IN GFR 15-29 STAGE 4 SEVERE DECREASE IN GFR <15 STAGE 5 KIDNEY FAILURE The Glomerular Filtration Rate (GFR) has been calculated using the IDMS-Traceable MDRD Study Equation. Aspartate aminotransferase [Enzymatic activity/volume] in Serum or Plasma by With P-5 (test xdsl=48022-7) 19 U/L 15-37 Alanine aminotransferase [Enzymatic activity/volume] in Serum or Plasma by With P-5'- (test pqyt=4125-0) 31 U/L 12-78 Alkaline phosphatase [Enzymatic activity/volume] in Serum or Plasma (test pvqs=6754-6) 96 U/L 45-117 Bilirubin.total [Mass/volume] in Serum or Plasma (test xmqd=0203-9) 0.4 mg/dL 0.2-1.0 Calcium [Mass/volume] in Serum or Plasma (test gcis=81030-7) 8.9 mg/dL 8.5-10.1 Protein [Mass/volume] in Serum or Plasma (test bnjd=0387-2) 7.5 g/dL 6.4-8.2 Albumin [Mass/volume] in Serum or Plasma by Bromocresol purple (BCP) dye binding meth (test xgrm=16321-2) 4.0 g/dL 3.4-5.0 Globulin (test code=GLOB) 3.5 g/dL 2.3-3.5 Albumin/Globulin Ratio (test code=A/G) 1.1 1.1-1.[address] Soto bqopluv0614-89-16 17:52:00* Test Item Value Reference Range Comments Cholesterol [Mass/volume] in Serum or Plasma (test imit=2757-6) 203 mg/dL <200 Triglyceride [Mass/volume] in Serum or Plasma (test pier=2645-2) 150 mg/dL <150 Cholesterol in HDL [Mass/volume] in Serum or Plasma (test yjle=9612-5) 60 mg/dL 40-60 Serum or plasma cholesterol in LDL measurement by calculation (mass/volume) (test lfjw=68563-5) 113 <130 This LDL is a calculated result; a more accurate analysis can be performed using the direct LDL methodology. Total cholesterol/cholesterol in HDL (percentile) (test bfrg=5833-4) 3.38 LIPID RISK RATIOS: 1/2 AVERAGE AVERAGE 2X AVERAGE 3X AVERAGE ------- MALE 3.43 4.97 9.55 23.39 FEMALE 3.27 4.44 7.05 11.[address] ZARCOhyrotropin [Units/volume] in Serum or Plasma by Detection limit <=0.05 mIU/F4099-27-94 17:52:00* Test Item Value Reference Range Comments Thyrotropin [Units/volume] in Serum or Plasma by Detection limit \T\lt;=0.05 mIU/L (test fwua=02371-4) 1.980 [iU]/L 0.360-3.[address] Valverdelete blood count (CBC) with automated white blood cell (WBC) fimtvinjfrpq9180-63-70 17:27:00* Test Item Value Reference Range Comments White blood cell count (test aggb=IVW6809) 8.4 4.3-10.9 Blood erythrocytes count (number/volume) (test sgzl=53961-1) 4.38 M/ul 3.86-4.86 Hemoglobin measurement (test ofiv=AZW9415) 12.9 g/dL 12.0-15.0 Blood hematocrit (volume fraction) (test tifr=77623-2) 38.3 % 36.0-45.0 MCV (test ddvk=JPF4315) 87.6 fL 80-100 29.4 MCHC (test code=MCHC) 33.6 g/dL 32.0-36.0 Platelets (test code=PLT) 254 152-406 Red Cell Distribution Width (test code=RDW) 14.2 % 12.1-15.2 Blood platelet mean volume (test hruz=48913-3) 8.7 fL 7.6-11.3 Neutrophils % (test code=ALVIN%) 55.8 % 41.7-73.7 Lymphocytes/leuk NFr Bld (test tujc=19813-0) 32.9 % 15.3-44.8 Monocyte percentage (test sdkd=5644-6) 7.7 % 3.3-12.3 Eosinophil % (test fwqb=486-5) 2.8 % 0-4.4 Basophil % (test bdnl=42541-9) 0.8 % 0-1.3 Absolute neutrophil count (test zycj=984-7) 4.7 1.8-8.0 Absolute lymphocyte count (test snyj=80225-4) 2.8 0.7-4.9 Absolute monocyte count (test akhn=643-6) 0.6 0.1-1.3 Absolute Eosinophils (test code=EOA) 0.2 0-0.5 Absolute Basophils (test code=BASA) 0.1 0-0.[address] Crowell Left Wo Lnjf3290-10-77 17:40:00[facility] [place] [address] [facility] REPORT Name: ERICA KWONG Acct Number: [id number] :1945 Age:73 Sex:F Ord Phys: Earl Nelson MD Unit Number: [id number] [facility] [address]: Status: REG REF RAD Exam Date: 08/31/18 EXAM DESCRIPTION: MRI - Elbow Left Wo Cont - 08/31/2018 4:26 pm CLINICAL HISTORY: M25.522 COMPARISON: Left elbow films August 14 TECHNIQUE: Multiplanar imaging of the elbow performed using axial proton density and T2 fat saturation seque ncing, coronal T1 and T2 stir sequencing and sagittal T2 fat saturation sequenci ng. Polio marker placed on the skin surface overlying clinically palpable mass. FINDINGS: No occult fracture, bone bruise or marrow replacing process. No joint effusion identified. No tendon injury and no skeletal muscle abnormality. At the area of palpable abnormality there is only fatty tissue present wi th no hematoma or mass. Subcutaneous fatty tissue shows normal signal intensity. Adjacent vasculature is unremarkable. IMPRESSION: The site of palpable a bnormality, normal-appearing fatty tissue is seen along with deeper normal-appea ring vasculature. No acute bone or joint finding. No tendon or skeletal mu scle abnormality. Signed By: Osmar Hines MD Signed AT: 9 1740 Extremity Venous Uni Qhv3988-24-05 20:00:00[place] [address] [facility] REPORT Name: ERICA KWONG Acct Number: [id number] :1945 Age:73 Sex:F Ord Phys: Darrin Richardson [employer]IAL DIRECTOR Unit Number: [id number] [facility]: Dario Posey MD Status: REG ER ER Exam Date: 08/14/18 EXAM DESCRIPTION: US - Extremity Venous Uni Ltd - 08/14/2018 7:37 pm CLINICAL HI STORY: Pain;Swelling Left arm pain and swelling. COMPARISON: EXT VENOU S W COMPRESSION ANA dated 11/14/2010 FINDINGS: Left upper extremity venous system was interrogated with Doppler technique. Normal flow, compressibility and augmentation was noted. There is no DVT present. IMPRESSION: No evidence of left upper extremity deep venous thrombosis. Signed By: Andry Vargas Signed AT: 08/14/18 2001 Elbow Left 3 Mxxj2588-02-20 19:17:00 [place] [address] [facility] REPORT Name: ERCIA KWONG Acct Number: [id number] :1945 Age:73 Sex:F Ord Phys: Darrin Richardson [employer]IAL DIRECTOR Unit Number: [id number] [facility]: Dario Posey MD Status: REG ER ER Exam Date: 08/14/18 EXAM DESCRIPTION: RAD - Elbow Left 3 View - 08/14/2018 6:47 pm CLINICAL HISTORY: PAIN COMPARISON: No comparisons FINDINGS: No bone or joint abnor mality of the left elbow is identified. Signed By: Andry Vargas MD Signed AT: 08/14/18 1924 Thyroid Para Parotid Kuyzb6044-21-92 14:40:00 [place] [address] [facility] REPORT Name: ERICA KWONGt Number: [id number] :1945 Age:73 Sex:F Ord Phys: Dario Posey MD Unit Number: [id number] [facility] Dr: Status: REG REF RAD Exam Date: 07/27/18 EXAM DESCRIPTION: US - Thyroid Para Parotid Gland - 07/27/2018 2:28 pm CLINICAL HISTORY: E04.9 COMPARISON: CT HEAD CSPINE MPR WO CONTRAST dated 05/23/2014 FINDINGS : The isthmus of the thyroid measures 5 mm. The right lobe of the thyroi d measures 3.8 x 1.5 x 2.1 cm. Hypoechoic nodule is seen the inferior right lobe measuring 9 x 7 mm. Several additional tiny nodules are present in the right lo be. The left lobe of the thyroid measures 3.1 x 1.4 x 1.4 cm. Several smal l subcentimeter hypoechoic nodules are noted. IMPRESSION: Mild mu ltinodular goiter is present. No suspicious dominant nodule is seen. Sig jeanine By: Andry Vargas MD Signed AT: 07/27/18 1440 Chest Pa And Lat (2 Views)2018-06-14 16:16:00[facility] [place] [address] [facility] REPORT Name: ERICA KWONG Acct Number: [id number] :1945 Age:73 Sex:F Ord Phys: Talib Monet MD Unit Number: [id number] [facility] Dr: Status: REG REF RAD Exam Date: 06/14/18 EXAM DESCRIPTION: RAD - Chest Pa And Lat (2 Views) - 06/14/2018 3:58 pm CLINICAL HISTORY: R10.11, R10.12, R10.32 COMPARISON: May 27 TECHNIQUE: PA and lateral views of the chest were obtained. FINDINGS: The lungs are clear. No new or progressive lung parenchymal process. Heart size is normal and central vasculature is within normal limits. No pleural effusion or pneumothorax seen. No acute bony finding noted. No aortic abnormality. An electronic device is seen in the distal esophagus. This matches up with patient provided history of telemetry device placement 1 week earlier. IMPRESSION: No acute cardiopulmonary process. No significant change from comparison. Signed By: Osmar Hines MD Signed AT: 06/14/18 1616 Abdomen 1 View (KUB)2018-06-14 16:00:00[place] [address] [facility] REPORT Name: ERICA KWONG Acct Number: [id number] :1945 Age:73 Sex:F Ord Phys: Talib Monet MD Unit Number: [id number] [facility] Dr: Status: REG REF RAD Exam Date: 06/14/18 EXAM DESCRIPTION: RAD - Abdomen 1 View (KUB) - 06/14/2018 3:52 pm CLINICAL HISTORY: R10.11, R10 .12, R10.32 Pain COMPARISON: No comparisons FINDINGS: The bowel gas pattern is non-obstructive. No evidence of free air or pneumatosis. No suspi cious calcifications. Cholecystectomy clips seen. Moderate stool in the colon. IMPRESSION: No acute abnormality is detected. Signed B y: Andry Vargas MD Signed AT: 06/14/18 1601 Thorax W/ Con 2018-05-28 08:37:00[place] [address] [facility] REPORT Name: ERICA KWONG Acct Number: [id number] :1945 Age:73 Sex:F Ord Phys: Kip Diaz PAC Unit Number: [id number] [facility] Dr: Dario Posey MD Status: DEP ER ER Exam Date: 05/27/18 EXAM DESCRIPTION: CT - Thorax W/ Con - 05/28/2018 6:31 am CLINICAL HISTORY: Cough and dysphasia/chest and COMPARISON: [address] abdomen TECHNIQUE: Computed axial tomography of the chest was obtained. 100 cc Isovue 300 was administered intravenously. Preliminary report was generated by virtual radiologic and reviewed prior to this dictation All CT scans are performed using dose optimization technique as appropriate and may include automated exposure control or mA/KV adjustment according to patient size. FINDINGS: A couple of tiny lung nodules bilaterally are unchanged and benign. No mediastinal or hilar lymphadenopathy is seen. A pleural effusion is not present. A pericardial effusion is not seen Small right adrenal nodule is unchanged and is benign. No gross abnormality of the esophagus is seen IMPRESSION: No acute abnormality is displayed Signed By: Phu Bowen MD Signed AT: 05/28/18 0837 Erythrocyte sedimentation rate (ESR) by Westergren pahnvx2837-73-81 01:14:00* Test Item Value Reference Range Comments Erythrocyte sedimentation rate (ESR) by Westergren method (test cyxw=3034-9) 15 mm/HR 0-30 Troponin I.cardiac [Mass/volume] in Serum or Hsxjny3958-53-19 00:49:00* Test Item Value Reference Range Comments Troponin I.cardiac [Mass/volume] in Serum or Plasma (test rowi=23443-0) <0.02 ng/mL 0.0-0.045 Chest Single Frig5907-35-08 21:19:00[facility] [place] [address] [facility] REPORT Name: ERICA KWONG Acct Number: [id number] :1945 Age:73 Sex:F Ord Phys: Kip Diaz PAC Unit Number: [id number] [facility]: Dario Posey MD Status: REG ER ER Exam Date: 05/27/18 EXAM DESCRIPTION: RAD - Chest Single View - 05/27/2018 8:39 pm CLINICAL HISTORY: Cough and congestion, chest pain COMPARISON: March 24 TECHNIQUE: AP portable chest image was obtained 2017 hours . FINDINGS: No focal lung parenchymal process. Interstitial markings are mildly prominent but not clearly different. No failure or volume overload. Heart size is upper normal, similar to comparison. Pericardial fat pads are present. No vascular engorgement. No measurable pleural effusion and no pneumothorax. No acute bony abnormality seen. No acute aortic findings suspected. IMPRESSION: No acute cardiopulmonary process. Chest findings are stable from March 24. Signed By: Osmar Hines MD Signed AT: 05/27/189 Basic Metabolic Byymm5552-07-85 21:13:00* Test Item Value Reference Range Comments Serum or plasma sodium measurement (moles/volume) (test dile=9789-9) 141 mmol/L 136-145 Potassium [Moles/volume] in Serum or Plasma (test daee=7617-6) 3.7 mmol/L 3.5-5.1 Chloride [Moles/volume] in Serum or Plasma (test svda=6488-8) 109 mmol/L 98-107 Carbon dioxide, total [Moles/volume] in Serum or Plasma (test bksk=5544-2) 25 mmol/L 21-32 Glucose [Mass/volume] in Serum or Plasma (test ncdl=6197-4) 131 mg/dL 74-106 Urea nitrogen [Mass/volume] in Serum or Plasma (test bhty=0671-2) 14 mg/dL 7-18 Creatinine [Mass/volume] in Serum or Plasma (test mlhi=2636-3) 1.00 mg/dL 0.55-1.3 Glomerular Filtration Rate (test code=GFR) 55 mL =/>90 FOR CHRONIC KIDNEY DISEASE: GFR STAGE DESCRIPTION=/>90 STAGE 1 NORMAL--OR-- MINIMAL KIDNEY DAMAGE WITH NORMAL GFR 60-89 STAGE 2 MILD DECREASE IN GFR 30-59 STAGE 3 MODERATE DECREASE IN GFR 15-29 STAGE 4 SEVERE DECREASE IN GFR <15 STAGE 5 KIDNEY FAILURE The Glomerular Filtration Rate (GFR) has been calculated using the IDMS-Traceable MDRD Study Equation. Calcium [Mass/volume] in Serum or Plasma (test xcbi=74728-4) 8.6 mg/dL 8.5-10.1 Test Ordered to Rule Out VTE/DVT? N Comment Bed:30 Test Ordered to Rule Out VTE/ DVT? NLiver (Hepatic) Wmjpkofo5399-71-35 21:13:00* Test Item Value Reference Range Comments Aspartate aminotransferase [Enzymatic activity/volume] in Serum or Plasma by With P-5 (test snlw=62994-3) 17 U/L 15-37 Alanine aminotransferase [Enzymatic activity/volume] in Serum or Plasma by With P-5'- (test yvzz=7855-9) 29 U/L 12-78 Alkaline phosphatase [Enzymatic activity/volume] in Serum or Plasma (test jhqm=0524-7) 90 U/L 45-117 Bilirubin.total [Mass/volume] in Serum or Plasma (test oedy=7620-3) 0.3 mg/dL 0.2-1.0 Bilirubin.direct [Mass/volume] in Serum or Plasma (test rylv=3317-9) 0.1 mg/dL 0-0.2 Protein [Mass/volume] in Serum or Plasma (test myqq=5098-1) 6.9 g/dL 6.4-8.2 Albumin [Mass/volume] in Serum or Plasma by Bromocresol purple (BCP) dye binding meth (test pmic=80710-3) 3.4 g/dL 3.4-5.0 Globulin (test code=GLOB) 3.5 g/dL 2.3-3.5 Albumin/Globulin Ratio (test code=A/G) 1.0 1.1-1.8 Test Ordered to Rule Out VTE/DVT? N Comment Bed:30 Test Ordered to Rule Out VTE/ DVT? NTroponin I.cardiac [Mass/volume] in Serum or Qntlcn4555-68-11 21:13:00* Test Item Value Reference Range Comments Troponin I.cardiac [Mass/volume] in Serum or Plasma (test wktn=39004-7) <0.02 ng/mL 0.0-0.045 Test Ordered to Rule Out VTE/DVT? N Comment Bed:30 Test Ordered to Rule Out VTE/ DVT? NNatriuretic peptide.B prohormone N-Terminal [Mass/volume] in Serum or Xmigst1131-75-22 21:13:00* Test Item Value Reference Range Comments Natriuretic peptide.B prohormone N-Terminal [Mass/volume] in Serum or Plasma (test perr=03358-1) 23 pg/mL <125 Test Ordered to Rule Out VTE/DVT? N Comment Bed:30 Test Ordered to Rule Out VTE/ DVT? NMagnesium [Mass/volume] in Serum or Atjcme0888-83-38 21:13:00* Test Item Value Reference Range Comments Magnesium [Mass/volume] in Serum or Plasma (test qcue=73993-2) 1.6 mg/dL 1.8-2.4 Test Ordered to Rule Out VTE/DVT? N Comment Bed:30 Test Ordered to Rule Out VTE/ DVT? NLipase [Enzymatic activity/volume] in Serum or Haozya7814-61-16 21:13:00* Test Item Value Reference Range Comments Lipase [Enzymatic activity/volume] in Serum or Plasma (test zqtw=8585-8) 173 U/L 73-393 Test Ordered to Rule Out VTE/DVT? N Comment Bed:30 Test Ordered to Rule Out VTE/ DVT? NComplete blood count (CBC) with automated white blood cell (WBC) sxgqqhrqeebv2597-49-08 20:55:00* Test Item Value Reference Range Comments White blood cell count (test gnta=MVM7118) 7.9 4.3-10.9 Blood erythrocytes count (number/volume) (test nfpm=19525-0) 4.04 M/ul 3.86-4.86 Hemoglobin measurement (test bfhs=DME4424) 12.7 g/dL 12.0-15.0 Blood hematocrit (volume fraction) (test kgmv=14184-0) 36.3 % 36.0-45.0 MCV (test qicm=21588-0) 89.8 fL 80-100 MCH (test xbkh=91180-5) 31.4 pg 27.0-35.0 MCHC (test code=MCHC) 35.0 g/dL 32.0-36.0 Platelets (test code=PLT) 261 152-406 Red Cell Distribution Width (test code=RDW) 14.5 % 12.1-15.2 Blood platelet mean volume (test pcxv=24834-5) 8.2 fL 7.6-11.3 Neutrophils % (test code=ALVIN%) 63.4 % 41.7-73.7 Lymphocytes/leuk NFr Bld (test veqy=40282-1) 26.6 % 15.3-44.8 Monocyte percentage (test cxen=2941-3) 6.5 % 3.3-12.3 Eosinophil % (test bsgb=545-7) 2.9 % 0-4.4 Basophil % (test jkjd=27604-6) 0.6 % 0-1.3 Absolute neutrophil count (test dtte=768-3) 5.0 1.8-8.0 Absolute lymphocyte count (test syri=35029-5) 2.1 0.7-4.9 Absolute monocyte count (test ubck=954-0) 0.5 0.1-1.3 Absolute Eosinophils (test code=EOA) 0.2 0-0.5 Absolute Basophils (test code=BASA) 0.1 0-0.5 Prothrombin time (PT) with international normalized ratio (INR)2018-05-27 20:54:00* Test Item Value Reference Range Comments PT Prothrombin Time (test code=PROTIME) 14.4 s 9.5-12.5 INR in Blood by Coagulation assay (test qzzu=78498-4) 1.22 Monitor pts using INR value (not prothrombin time) INR Coumadin Therapy: Low Range (prophylaxis) 2.0-3.0 High Range (high risk of clot formation) 2.5-3.5 NColony bomjc3596-59-74 13:50:00BETWEEN 10,000 & 100,000 CFU/ML^BETWEEN 10,000 & 100,000 CFU/ML^LUrine bocbktw0021-70-00 13:50:00* Test Item Value Reference Range Comments Urine culture (test wdcz=191-5) MIXED KAPIL. Urine culture (test pmid=716-19) Urine culture (test yphs=425-72) 2+NON-BETA HEMOLYTIC STREP Urine culture (test mdaj=263-56) STREP BOVIS Urine culture (test ybxy=083-6) Streptococcus bovis group Penicillin susceptibility test by minimum inhibitory concentration (test ccjd=4136-6) Vancomycin susceptibility test by minimum inhibitory concentration (test smxj=863-7) Levofloxacin susceptibility test by minimum inhibitory concentration (test iwau=88595-8) Lipid avshfqn4751-94-87 13:42:00* Test Item Value Reference Range Comments Cholesterol [Mass/volume] in Serum or Plasma (test uzkn=7442-4) 211 mg/dL <200 Triglyceride [Mass/volume] in Serum or Plasma (test pjib=2675-7) 194 mg/dL <150 Cholesterol in HDL [Mass/volume] in Serum or Plasma (test btdx=2110-4) 61 mg/dL 40-60 Serum or plasma cholesterol in LDL measurement by calculation (mass/volume) (test oskz=98517-2) 111 <130 This LDL is a calculated result; a more accurate analysis can be performed using the direct LDL methodology. Total cholesterol/cholesterol in HDL (percentile) (test vofr=6664-6) 3.46 LIPID RISK RATIOS: 1/2 AVERAGE AVERAGE 2X AVERAGE 3X AVERAGE ------- MALE 3.43 4.97 9.55 23.39 FEMALE 3.27 4.44 7.05 11.04 Tlwbgdtbmn3974-61-63 13:38:00* Test Item Value Reference Range Comments Urine color (test wqps=0672-4) YELLOW Urine appearance determination (test ciuq=1549-0) CLEAR Urine specific gravity measurement (test orxw=0454-6) 1.010 1.005-1.030 Urine glucose detection (test ueer=0404-0) Negative NEG Urine bilirubin detection (test oxru=4076-7) Negative NEG Urine Ketones (test code=UKET) NEGATIVE NEG Urine blood detection (test upfv=98066-7) Negative NEG Urine pH (test qmfo=3464-7) 5.5 5.0-7.0 Urinalysis with microscopy (test znrf=00270-6) NEGATIVE NEG Urine urobilinogen detection (test glao=01282-0) 0.2 0.2-1.0 Urine Nitrate (test code=UNIT) NEGATIVE NEG Urine Leukocyte Esterase (test code=UESTR) 2+ NEG Microscopic examination of dfatd1836-80-56 13:38:00* Test Item Value Reference Range Comments Urine WBC (test code=UWBC) 20-50 <5 Urine sediment erythrocyte count by microscopy (number/high power field) (test xtnk=40368-9) NONE SEEN NONE SEEN Bacteria detection in urine sediment by light microscopy (test wbjb=02816-9) 20-50 <20 Sqamous Epithelial (test code=SQEP) <5 NONE SEEN Urinalysis with reflex to culture (test flmb=46495-6) REFLEXED WBC casts detection in urine sediment by light microscopy (test muuu=63886-8) 0-5 NONE SEEN Norman cogjm7118-58-04 14:43:00BETWEEN 10,000 & 100,000 CFU/ML^BETWEEN 10,000 & 100,000 CFU/ML^LUrine awhhofv5557-42-17 14:43:00* Test Item Value Reference Range Comments Urine culture (test ormj=350-8) MIXED KAPIL. Urine culture (test octp=953-57) Urine culture (test uyxu=141-10) 2+NON-BETA HEMOLYTIC STREP Urine culture (test sami=412-48) STREP BOVIS Urine culture (test ztzt=991-5) Streptococcus bovis group * This is a corrected result. * A prior result that was reported as final has been changed. Penicillin susceptibility test by minimum inhibitory concentration (test cewk=3340-8) Vancomycin susceptibility test by minimum inhibitory concentration (test vfim=944-2) Levofloxacin susceptibility test by minimum inhibitory concentration (test uoyu=05958-2) Abdomen Pelvis W Emtuiaol4420-45-56 08:27:00[facility] [place] [address] [facility] REPORT Name: ERICA KWONG Acct Number: [id number] :1945 Age:73 Sex:F Ord Phys: Kip Diaz PAC Unit Number: [id number] Prim Care Dr: Dario Posey MD Status: DEP ER ER Exam Date: 03/24/18 EXAM DESCRIPTION: CTAbdomen Pelvis W Contrast - 03/25/2018 3:47 am CLINICAL HISTORY: Abdominal pain. upper abdomen pain COMPARISON: Abdomen Pelvis W Contrast dated 11/18/2016; Abdomen Pelvis W Contrast dated 08/19/2016; Abdomen Pelvis W Contrast dated 06/13/2016; CT ABD PELVIS W CONTRAST dated 10/19/2015 TECHNIQUE: Biphasic CT imaging of the abdomen and pelvis was performed with 100 ml non-ionic IV contrast. All CT scans are performed using dose optimi zation technique as appropriate and may include automated exposure control or mA /KV adjustment according to patient size. FINDINGS: The lung bases are cl ear.Cholecystectomy clips. The liver, spleen, pancreas, adrenal glands and right kidney are within normal limits. Small 2-3 mm stones suspect in the left kidney without hydronephrosis. Several benign left renal cysts are present. No bowel obstruction, free air, free fluid or abscess. Prominent sigmoid dive rticulosis is present. No evidence of significant lymphadenopathy. Degene rative changes are present at L5-S1 with grade 1 anterolisthesis noted. Postsurg ical changes are present along the pelvic floor. Hysterectomy. IMPRESSION: No acute intra-abdominal or pelvic finding. Left nephrolithiasis without hydronephrosis. Signed By: Andry Vargas MD Signed AT: 03/09 02/23 0828 Chest Single Nbot4096-70-54 07:58:00[facility] [place] [address] [facility] REPORT Name: ERICA KWONG Acct Number: [id number] :1945 Age:73 Sex:F Ord Phys: Kip Diaz PAC Unit Number: [id number] Prim Care Dr: Dario Posey MD Status: DEP ER ER Exam Date: 03/24/18 EXAM DESC RIPTION: RAD - Chest Single View - 03/24/2018 11:32 pm CLINICAL HISTORY: upper abdomen pain Chest pain. COMPARISON: CHEST SINGLE VIEW dated 10/18; CHEST SINGLE VIEW dated 07/16/2015; CHEST SINGLE VIEW dated 02/14/2015; CHES T SINGLE VIEW dated 09/12/2014 FINDINGS: Portable technique limits examinat ion quality. The lungs are grossly clear. The heart is mildly prominent in size. No displaced fractures. IMPRESSION: No acute intrathoracic process suspected. Signed By: Andry Vargas MD Signed AT: 03/25/18 0759 Troponin I.cardiac [Mass/volume] in Serum or Sfmfxw5748-79-06 00:11:00* Test Item Value Reference Range Comments Troponin I.cardiac [Mass/volume] in Serum or Plasma (test yrko=90160-8) <0.02 ng/mL 0.0-0.045 Comment Bed:[address] [place] [address] Metabolic Kdljx1097-37-15 00:08:00* Test Item Value Reference Range Comments Serum or plasma sodium measurement (moles/volume) (test csqj=2940-2) 140 mmol/L 136-145 Potassium [Moles/volume] in Serum or Plasma (test fboh=2979-2) 3.7 mmol/L 3.5-5.1 Chloride [Moles/volume] in Serum or Plasma (test yejz=0936-4) 108 mmol/L 98-107 Carbon dioxide, total [Moles/volume] in Serum or Plasma (test pnet=7325-3) 26 mmol/L 21-32 Glucose [Mass/volume] in Serum or Plasma (test kpjj=9367-2) 107 mg/dL 74-106 Urea nitrogen [Mass/volume] in Serum or Plasma (test tzwg=2654-9) 23 mg/dL 7-18 Creatinine [Mass/volume] in Serum or Plasma (test ckok=9069-2) 1.00 mg/dL 0.55-1.3 Estimated glomerular filtration rate (GFR) determination (test kaag=19040-3) 55 mL =/>90 FOR CHRONIC KIDNEY DISEASE: GFR STAGE DESCRIPTION=/>90 STAGE 1 NORMAL--OR-- MINIMAL KIDNEY DAMAGE WITH NORMAL GFR 60-89 STAGE 2 MILD DECREASE IN GFR 30-59 STAGE 3 MODERATE DECREASE IN GFR 15-29 STAGE 4 SEVERE DECREASE IN GFR <15 STAGE 5 KIDNEY FAILURE The Glomerular Filtration Rate (GFR) has been calculated using the IDMS-Traceable MDRD Study Equation. Calcium [Mass/volume] in Serum or Plasma (test rldb=51912-9) 8.6 mg/dL 8.5-10.1 Liver (Hepatic) Ryxurjcx8763-93-14 00:08:00* Test Item Value Reference Range Comments Aspartate aminotransferase [Enzymatic activity/volume] in Serum or Plasma by With P-5 (test cdbs=86472-0) 18 U/L 15-37 Alanine aminotransferase [Enzymatic activity/volume] in Serum or Plasma by With P-5'- (test exps=4493-2) 28 U/L 12-78 Alkaline phosphatase [Enzymatic activity/volume] in Serum or Plasma (test dmvo=7969-4) 93 U/L 45-117 Bilirubin.total [Mass/volume] in Serum or Plasma (test chgx=9966-5) 0.2 mg/dL 0.2-1.0 Bilirubin.direct [Mass/volume] in Serum or Plasma (test ogei=4833-3) <0.1 mg/dL 0-0.2 Protein [Mass/volume] in Serum or Plasma (test qkcv=2492-4) 7.3 g/dL 6.4-8.2 Albumin [Mass/volume] in Serum or Plasma by Bromocresol purple (BCP) dye binding meth (test dzal=10340-1) 3.9 g/dL 3.4-5.0 Globulin (test code=GLOB) 3.4 g/dL 2.3-3.5 Albumin/Globulin Ratio (test code=A/G) 1.1 1.1-1.8 Amylase [Enzymatic activity/volume] in Serum or Ypkoyr5936-13-36 00:08:00* Test Item Value Reference Range Comments Amylase [Enzymatic activity/volume] in Serum or Plasma (test pouw=6309-0) 61 U/L 25-115 Lipase [Enzymatic activity/volume] in Serum or Hvkqca2502-50-87 00:08:00* Test Item Value Reference Range Comments Lipase [Enzymatic activity/volume] in Serum or Plasma (test psrj=2389-6) 226 U/L 73-393 Microscopic examination of atywh9682-04-28 00:07:00* Test Item Value Reference Range Comments Urine WBC (test code=UWBC) 20-50 <5 Urine sediment erythrocyte count by microscopy (number/high power field) (test cvok=90190-0) <5 NONE SEEN Bacteria detection in urine sediment by light microscopy (test ubjt=20342-1) <20 <20 Sqamous Epithelial (test code=SQEP) 5-10 NONE SEEN Urinalysis with reflex to culture (test uqzj=45341-1) REFLEXED Mucus detection in urine sediment by light microscopy (test hzcs=8664-4) LIGHT NONE SEEN Creatinine [Mass/volume] in Serum or Wgocaa7182-23-56 00:06:00* Test Item Value Reference Range Comments Creatinine [Mass/volume] in Serum or Plasma (test bhkm=4329-6) 0.90 mg/dL 0.55-1.3 Estimated glomerular filtration rate (GFR) determination (test iwyu=57241-1) 62 mL >60 FOR CHRONIC KIDNEY DISEASE: GFR STAGE >60 1 or 2 30-59 3 15-29 4 <15(or dialysis) 5 The Glomerular Filtration Rate (GFR) has been calculated using the IDMS-Traceable MDRD Study Equation. Urine dipstick testing at cpvss-tm-iwyh1829-08-17 00:03:00* Test Item Value Reference Range Comments Urine specific gravity measurement (test ibrq=5551-4) 1.020 1.005-1.030 Urine glucose detection (test wkzj=3522-8) Negative NEG Urine Ketones (test code=UKET) NEGATIVE NEG Urine blood detection (test vaid=36105-3) Negative NEG Urine pH (test xabn=3185-9) 5.5 5.0-7.0 Urinalysis with microscopy (test knta=01210-5) NEGATIVE NEG Urine Nitrate (test code=UNIT) NEGATIVE NEG Urine Leukocyte Esterase (test code=UESTR) 1+ NEG Comment Bed:23 rv NEG NEG NEG 1+ NEG 5.5 NEG Y 1.020Complete blood count (CBC) with automated white blood cell (WBC) xjvjwvfwgiyq1274-86-20 00:00:00* Test Item Value Reference Range Comments White blood cell count (test atfy=TRR0703) 11.0 4.3-10.9 Blood erythrocytes count (number/volume) (test ukap=90777-2) 4.39 M/ul 3.86-4.86 Hemoglobin measurement (test ssht=PCD2598) 13.3 g/dL 12.0-15.0 Blood hematocrit (volume fraction) (test tyem=63780-0) 39.1 % 36.0-45.0 MCV (test jtbl=54047-3) 89.0 fL 80-100 MCH (test nvdq=50203-2) 30.3 pg 27.0-35.0 MCHC (test code=MCHC) 34.1 g/dL 32.0-36.0 Platelets (test code=PLT) 281 152-406 Red Cell Distribution Width (test code=RDW) 14.0 % 12.1-15.2 Blood platelet mean volume (test eboq=76800-0) 9.0 fL 7.6-11.3 Neutrophils % (test code=ALVIN%) 65.8 % 41.7-73.7 Lymphocytes/leuk NFr Bld (test ypza=25385-5) 23.8 % 15.3-44.8 Monocyte percentage (test fchs=9272-3) 8.7 % 3.3-12.3 Eosinophil % (test qwnn=066-0) 1.2 % 0-4.4 Basophil % (test xggs=97172-0) 0.5 % 0-1.3 Absolute neutrophil count (test qbsl=467-8) 7.2 1.8-8.0 Absolute lymphocyte count (test xvqa=50820-3) 2.6 0.7-4.9 Absolute monocyte count (test fzys=238-9) 1.0 0.1-1.3 Absolute Eosinophils (test code=EOA) 0.1 0-0.5 Absolute Basophils (test code=BASA) 0.1 0-0.5 Comprehensive metabolic opejs4487-41-79 18:45:00* Test Item Value Reference Range Comments Sodium level (test wbqb=HGM1674) 137 meq/L 135-145 4.5 Chloride measurement (test nwme=CAF6179) 104 meq/L 101-111 Bicarbonate (test code=CO2) 26 meq/L 21-31 Glucose measurement (test lsir=EFC4862) 101 mg/dL 65-120 ADA Clinical Practice Recommendation: <100 mg/dl=Normal Fasting Glucose BUN Bld-mCnc (test cvsi=6585-7) 12 mg/dL 6-20 Creatinine measurement (test kqay=NKN9044) 0.85 mg/dL 0.44-1.00 The creatinine method used has been calibrated to be traceable to Isotope dilution Mass Spectrometry (IDMS). For more information: www.nkdep.nih.gov Estimated glomerular filtration rate (GFR) determination (test igow=96381-6) 66 mL =/>90 FOR CHRONIC KIDNEY DISEASE: GFR STAGE DESCRIPTION=/>90 STAGE 1 NORMAL--OR-- MINIMAL KIDNEY DAMAGE WITH NORMAL GFR 60-89 STAGE 2 MILD DECREASE IN GFR 30-59 STAGE 3 MODERATE DECREASE IN GFR 15-29 STAGE 4 SEVERE DECREASE IN GFR <15 STAGE 5 KIDNEY FAILURE The Glomerular Filtration Rate (GFR) has been calculated using the IDMS-Traceable MDRD Study Equation. Aspartate aminotransferase (AST) measurement (test wzit=YSX1132) 30 [iU]/L 10-42 ALT/SGPT (test code=SGPT) 34 [iU]/L 10-60 Alkaline Phosphatase (test code=ALK) 64 [iU]/L 42-121 Bilirubin total (test kjdx=YDB8027) 0.5 mg/dL 0.3-1.2 Calcium Level (test code=CA) 9.8 mg/dL 8.5-10.5 Serum total protein measurement (test cqlg=4179-1) 7.1 g/dL 6.0-8.3 Albumin measurement (test fxjn=UAM6363) 4.3 g/dL 3.2-5.5 Globulin (test code=GLOB) 2.8 g/dL 2.3-3.5 Albumin/Globulin Ratio (test code=A/G) 1.5 1.1-1.8 Lipid mzvogyk4491-24-94 18:45:00* Test Item Value Reference Range Comments Cholesterol measurement (test sguh=FUF4536) 283 mg/dL <200 185 HDL Cholesterol (test code=HDL) 61 mg/dL 29-89 Serum or plasma cholesterol in LDL measurement by calculation (mass/volume) (test wrmq=16309-7) 185 <130 This LDL is a calculated result; a more accurate analysis can be performed using the direct LDL methodology. Total cholesterol/cholesterol in HDL (percentile) (test dnpu=9279-8) 4.64 LIPID RISK RATIOS: 1/2 AVERAGE AVERAGE 2X AVERAGE 3X AVERAGE ------- MALE 3.43 4.97 9.55 23.39 FEMALE 3.27 4.44 7.05 11.04 Thyroid Stimulating Hkvzexv6146-26-43 18:45:00* Test Item Value Reference Range Comments Thyroid Stimulating Hormone (test code=TSH) 1.63 [iU]/L 0.34-5.60 Hemoglobin A1c tzxpkcoezwa7755-73-85 18:02:00* Test Item Value Reference Range Comments Hemoglobin A1c measurement (test fmws=55258-1) 5.7 % 4-6.0 Complete blood count (CBC) with automated white blood cell (WBC) differential 2017-12-01 12:13:00* Test Item Value Reference Range Comments White blood cell count (test cfpb=WPV9510) 7.7 4.3-10.9 Blood erythrocytes count (number/volume) (test zyuq=51663-1) 4.34 M/ul 3.86-4.86 Hemoglobin measurement (test dgby=NLV1380) 13.0 g/dL 12.0-15.0 Blood hematocrit (volume fraction) (test ugek=36196-6) 38.7 % 36.0-45.0 MCV (test tkpe=93047-2) 89.3 fL 80-100 MCH (test hbfe=05478-0) 30.0 pg 27.0-35.0 MCHC (test code=MCHC) 33.6 g/dL 32.0-36.0 Platelets (test code=PLT) 252 152-406 Red Cell Distribution Width (test code=RDW) 14.2 % 12.1-15.2 Blood platelet mean volume (test mdxk=04028-5) 8.9 fL 7.6-11.3 Neutrophils % (test code=ALVIN%) 52.1 % 41.7-73.7 Lymphocytes/leuk NFr Bld (test gyne=08207-8) 36.7 % 15.3-44.8 Monocyte percentage (test owyy=0537-6) 7.9 % 3.3-12.3 Eosinophil % (test wawm=928-9) 2.9 % 0-4.4 Basophil % (test nobi=18848-1) 0.4 % 0-1.3 Absolute neutrophil count (test hjpg=065-0) 4.0 1.8-8.0 Absolute lymphocyte count (test tuvq=97166-6) 2.8 0.7-4.9 Absolute monocyte count (test bfit=248-3) 0.6 0.1-1.3 Absolute Eosinophils (test code=EOA) 0.2 0-0.5 Absolute Basophils (test code=BASA) 0.0 0-0.5 Erythrocyte sedimentation rate (ESR) by Westergren wapkdb7498-22-28 12:13:00* Test Item Value Reference Range Comments Erythrocyte sedimentation rate (ESR) by Westergren method (test aqqn=6457-1) 11 mm/HR 0-30 Comprehensive metabolic hpsyd3147-05-67 11:33:00* Test Item Value Reference Range Comments Sodium level (test hlje=HOY1079) 141 meq/L 135-145 4.2 Chloride measurement (test cvcj=NWN9302) 103 meq/L 101-111 Bicarbonate (test code=CO2) 28 meq/L 21-31 Glucose measurement (test kczk=SRA5378) 121 mg/dL 65-120 ADA Clinical Practice Recommendation: <100 mg/dl=Normal Fasting Glucose BUN Bld-mCnc (test vetl=2704-8) 15 mg/dL 6-20 Creatinine measurement (test evxe=VCH7818) 0.89 mg/dL 0.44-1.00 The creatinine method used has been calibrated to be traceable to Isotope dilution Mass Spectrometry (IDMS). For more information: www.nkdep.nih.gov Estimated glomerular filtration rate (GFR) determination (test upcp=94134-6) 63 mL =/>90 FOR CHRONIC KIDNEY DISEASE: GFR STAGE DESCRIPTION=/>90 STAGE 1 NORMAL--OR-- MINIMAL KIDNEY DAMAGE WITH NORMAL GFR 60-89 STAGE 2 MILD DECREASE IN GFR 30-59 STAGE 3 MODERATE DECREASE IN GFR 15-29 STAGE 4 SEVERE DECREASE IN GFR <15 STAGE 5 KIDNEY FAILURE The Glomerular Filtration Rate (GFR) has been calculated using the IDMS-Traceable MDRD Study Equation. Aspartate aminotransferase (AST) measurement (test xlrw=ZJK8167) 25 [iU]/L 10-42 ALT/SGPT (test code=SGPT) 29 [iU]/L 10-60 Alkaline Phosphatase (test code=ALK) 68 [iU]/L 42-121 Bilirubin total (test ytbe=DFU1010) 0.5 mg/dL 0.3-1.2 Calcium Level (test code=CA) 9.5 mg/dL 8.5-10.5 Serum total protein measurement (test vckl=4606-9) 6.8 g/dL 6.0-8.3 Albumin measurement (test ciee=LGP9236) 4.0 g/dL 3.2-5.5 Globulin (test code=GLOB) 2.8 g/dL 2.3-3.5 Albumin/Globulin Ratio (test code=A/G) 1.4 1.1-1.8 Amylase wnxlrblczhp0607-72-26 11:33:00* Test Item Value Reference Range Comments Amylase measurement (test dbjs=WSC7323) 57 U/L 28-100 Lipase usbqjgibvxc0539-42-10 11:33:00* Test Item Value Reference Range Comments Lipase measurement (test stmz=5899-2) 28 U/L 22-51 Basic Metabolic Kpxbl5432-24-95 13:45:00* Test Item Value Reference Range Comments Sodium level (test mrtx=GYX5529) 139 meq/L 135-145 4.3 Chloride measurement (test xger=UAH5138) 104 meq/L 101-111 Bicarbonate (test code=CO2) 26 meq/L 21-31 Glucose measurement (test lnib=YQD2752) 121 mg/dL 65-120 ADA Clinical Practice Recommendation: <100 mg/dl=Normal Fasting Glucose BUN Bld-mCnc (test xpbf=4687-9) 17 mg/dL 6-20 Creatinine measurement (test jogh=IJM0069) 0.90 mg/dL 0.44-1.00 The creatinine method used has been calibrated to be traceable to Isotope dilution Mass Spectrometry (IDMS). For more information: www.nkdep.nih.gov Estimated glomerular filtration rate (GFR) determination (test pnro=90501-2) 62 mL =/>90 FOR CHRONIC KIDNEY DISEASE: GFR STAGE DESCRIPTION=/>90 STAGE 1 NORMAL--OR-- MINIMAL KIDNEY DAMAGE WITH NORMAL GFR 60-89 STAGE 2 MILD DECREASE IN GFR 30-59 STAGE 3 MODERATE DECREASE IN GFR 15-29 STAGE 4 SEVERE DECREASE IN GFR <15 STAGE 5 KIDNEY FAILURE The Glomerular Filtration Rate (GFR) has been calculated using the IDMS-Traceable MDRD Study Equation. Calcium Level (test code=CA) 9.6 mg/dL 8.5-10.5 Aspartate aminotransferase (AST) busnoudwzet6824-34-64 13:45:00* Test Item Value Reference Range Comments Aspartate aminotransferase (AST) measurement (test ltwn=GDI4671) 28 [iU]/L 10-42 ALT/HSHX2704-39-38 13:45:00* Test Item Value Reference Range Comments ALT/SGPT (test code=SGPT) 31 [iU]/L 10-60 T4 Xknp4072-96-08 13:45:00* Test Item Value Reference Range Comments T4 Free (test code=T4F) 0.94 ng/dL 0.58-1.64 Thyroid Stimulating Zvkrsoh5835-33-18 13:45:00* Test Item Value Reference Range Comments Thyroid Stimulating Hormone (test code=TSH) 3.34 [iU]/L 0.34-5.60 25-hydroxyvitamin J8741-91-01 13:38:00* Test Item Value Reference Range Comments 25-hydroxyvitamin D (test kuin=8322-6) 29.4 ng/mL 30-100 Vitamin D Concentration Vitamin D Status <20 ng/mL Deficient 20 - 30 ng/mL Insufficient 30 - 100 ng/mL Sufficient >100 ng/mL Upper Safety Limit Comprehensive metabolic vfsqv6974-28-63 15:56:00* Test Item Value Reference Range Comments Sodium level (test zyzr=ZYU4958) 137 meq/L 135-145 4.5 Chloride measurement (test ccpc=WQU3249) 101 meq/L 101-111 Bicarbonate (test code=CO2) 28 meq/L 21-31 Glucose measurement (test ptae=HAY8741) 101 mg/dL 65-120 ADA Clinical Practice Recommendation: <100 mg/dl=Normal Fasting Glucose BUN Bld-mCnc (test ejnq=7933-8) 17 mg/dL 6-20 Creatinine measurement (test opsf=RML9935) 0.86 mg/dL 0.44-1.00 The creatinine method used has been calibrated to be traceable to Isotope dilution Mass Spectrometry (IDMS). For more information: [email or web address].nih.gov Estimated glomerular filtration rate (GFR) determination (test pjpf=79484-5) 65 mL =/>90 FOR CHRONIC KIDNEY DISEASE: GFR STAGE DESCRIPTION=/>90 STAGE 1 NORMAL--OR-- MINIMAL KIDNEY DAMAGE WITH NORMAL GFR 60-89 STAGE 2 MILD DECREASE IN GFR 30-59 STAGE 3 MODERATE DECREASE IN GFR 15-29 STAGE 4 SEVERE DECREASE IN GFR <15 STAGE 5 KIDNEY FAILURE The Glomerular Filtration Rate (GFR) has been calculated using the IDMS-Traceable MDRD Study Equation. Aspartate aminotransferase (AST) measurement (test itmx=WCS1494) 29 [iU]/L 10-42 ALT/SGPT (test code=SGPT) 33 [iU]/L 10-60 Alkaline Phosphatase (test code=ALK) 76 [iU]/L 42-121 Bilirubin total (test afzu=XNR0156) 0.4 mg/dL 0.3-1.2 Calcium Level (test code=CA) 9.4 mg/dL 8.5-10.5 Serum total protein measurement (test dwyv=4230-8) 7.0 g/dL 6.0-8.3 Albumin measurement (test vsqo=FHG3319) 4.4 g/dL 3.2-5.5 Globulin (test code=GLOB) 2.6 g/dL 2.3-3.5 Albumin/Globulin Ratio (test code=A/G) 1.7 1.1-1.8 Lipid [id number] 15:56:00* Test Item Value Reference Range Comments Cholesterol measurement (test buvy=[id number]) 178 mg/dL <200 106 HDL Cholesterol (test code=HDL) 61 mg/dL 29-89 Serum or plasma cholesterol in LDL measurement by calculation (mass/volume) (test jcst=17807-8) 96 <130 This LDL is a calculated result; a more accurate analysis can be performed using the direct LDL methodology. Total cholesterol/cholesterol in HDL (percentile) (test iwjy=7734-3) 2.92 LIPID RISK RATIOS: 1/2 AVERAGE AVERAGE 2X AVERAGE 3X AVERAGE ------- MALE 3.43 4.97 9.55 23.39 FEMALE 3.27 4.44 7.05 11.04 Comprehensive metabolic zsikk0641-32-57 16:44:00* Test Item Value Reference Range Comments Sodium level (test vibm=WOA5163) 139 meq/L 135-145 4.9 Chloride measurement (test htzr=VTO8239) 101 meq/L 101-111 Bicarbonate (test code=CO2) 28 meq/L 21-31 Glucose measurement (test kofb=NRB2716) 102 mg/dL 65-120 ADA Clinical Practice Recommendation: <100 mg/dl=Normal Fasting Glucose BUN Bld-mCnc (test zeet=1401-5) 13 mg/dL 6-20 Creatinine measurement (test aiub=MYR9054) 0.83 mg/dL 0.44-1.00 The creatinine method used has been calibrated to be traceable to Isotope dilution Mass Spectrometry (IDMS). For more information: www.nkdep.nih.gov Estimated glomerular filtration rate (GFR) determination (test vcaw=43112-4) 68 mL =/>90 FOR CHRONIC KIDNEY DISEASE: GFR STAGE DESCRIPTION=/>90 STAGE 1 NORMAL--OR-- MINIMAL KIDNEY DAMAGE WITH NORMAL GFR 60-89 STAGE 2 MILD DECREASE IN GFR 30-59 STAGE 3 MODERATE DECREASE IN GFR 15-29 STAGE 4 SEVERE DECREASE IN GFR <15 STAGE 5 KIDNEY FAILURE The Glomerular Filtration Rate (GFR) has been calculated using the IDMS-Traceable MDRD Study Equation. Aspartate aminotransferase (AST) measurement (test szjk=KBS8363) 21 [iU]/L 10-42 ALT/SGPT (test code=SGPT) 25 [iU]/L 10-60 Alkaline Phosphatase (test code=ALK) 70 [iU]/L 42-121 Bilirubin total (test oyru=FCD9142) 0.7 mg/dL 0.3-1.2 Calcium Level (test code=CA) 9.6 mg/dL 8.5-10.5 Serum total protein measurement (test hunl=5518-2) 7.0 g/dL 6.0-8.3 Albumin measurement (test phgn=PDA9354) 4.3 g/dL 3.2-5.5 Globulin (test code=GLOB) 2.7 g/dL 2.3-3.5 Albumin/Globulin Ratio (test code=A/G) 1.6 1.1-1.8 Amylase snbatmkymui9704-47-78 16:44:00* Test Item Value Reference Range Comments Amylase measurement (test dhnf=SYJ1417) 59 U/L 28-100 Lipase zwdplccwzxm2842-42-04 16:44:00* Test Item Value Reference Range Comments Lipase measurement (test szwy=0424-5) 24 U/L 22-51 Complete blood count (CBC) with automated white blood cell (WBC) differential 2017-01-11 16:25:00* Test Item Value Reference Range Comments White blood cell count (test wnfr=CDT3919) 8.9 4.3-10.9 Blood erythrocytes count (number/volume) (test mikt=33271-8) 4.66 M/ul 3.86-4.86 Hemoglobin measurement (test sqxo=GFL1132) 13.7 g/dL 12.0-15.0 Blood hematocrit (volume fraction) (test xjgw=08571-7) 42.0 % 36.0-45.0 MCV (test iggs=39378-8) 90.3 fL 80-100 MCH (test rgro=04880-6) 29.4 pg 27.0-35.0 MCHC (test code=MCHC) 32.6 g/dL 32.0-36.0 Platelets (test code=PLT) 234 152-406 Red Cell Distribution Width (test code=RDW) 14.0 % 12.1-15.2 Blood platelet mean volume (test nasb=83468-9) 9.2 fL 7.6-11.3 Neutrophils % (test code=ALVIN%) 59.0 % 41.7-73.7 Lymphocytes/leuk NFr Bld (test xfgp=94266-2) 30.7 % 15.3-44.8 Monocyte percentage (test eihv=3077-5) 7.2 % 3.3-12.3 Eosinophil % (test vntu=851-1) 2.7 % 0-4.4 Basophil % (test bonn=60767-5) 0.4 % 0-1.3 Absolute neutrophil count (test njpb=451-7) 5.2 1.8-8.0 Absolute lymphocyte count (test blos=01251-5) 2.7 0.7-4.9 Absolute monocyte count (test yyvm=016-9) 0.6 0.1-1.3 Absolute Eosinophils (test code=EOA) 0.2 0-0.5 Absolute Basophils (test code=BASA) 0.0 0-0.5 Erythrocyte sedimentation rate (ESR) by Westergren kcddov7959-05-06 16:25:00* Test Item Value Reference Range Comments Erythrocyte sedimentation rate (ESR) by Westergren method (test foxt=3257-4) 8 mm/HR 0-30 Norman afcbo1099-86-41 09:13:00>100,000 CFU/ML.^>100,000 CFU/ML.^LUrine culture 2016-11-21 09:13:00* Test Item Value Reference Range Comments Urine culture (test cgve=961-9) MIXED KAPIL. Basic Metabolic Vtizv6021-40-70 07:09:00* Test Item Value Reference Range Comments Sodium level (test naxr=VRQ4385) 141 meq/L 135-145 4.0 Chloride measurement (test iblw=FWT0305) 104 meq/L 101-111 Bicarbonate (test code=CO2) 26 meq/L 21-31 Glucose measurement (test vdhb=STW3217) 116 mg/dL 65-120 ADA Clinical Practice Recommendation: <100 mg/dl=Normal Fasting Glucose BUN Bld-mCnc (test zwil=0585-2) 10 mg/dL 6-20 Creatinine measurement (test gaod=XDZ4968) 0.80 mg/dL 0.44-1.00 The creatinine method used has been calibrated to be traceable to Isotope dilution Mass Spectrometry (IDMS). For more information: www.nkdep.nih.gov Estimated glomerular filtration rate (GFR) determination (test zvlw=79220-8) 71 mL =/>90 FOR CHRONIC KIDNEY DISEASE: GFR STAGE DESCRIPTION=/>90 STAGE 1 NORMAL--OR-- MINIMAL KIDNEY DAMAGE WITH NORMAL GFR 60-89 STAGE 2 MILD DECREASE IN GFR 30-59 STAGE 3 MODERATE DECREASE IN GFR 15-29 STAGE 4 SEVERE DECREASE IN GFR <15 STAGE 5 KIDNEY FAILURE The Glomerular Filtration Rate (GFR) has been calculated using the IDMS-Traceable MDRD Study Equation. Calcium Level (test code=CA) 8.5 mg/dL 8.5-10.5 Primary Language Bahamian Primary Language EnglishComplete blood count (CBC) with automated white blood cell (WBC) qmxksajhlnfz1911-73-05 06:26:00* Test Item Value Reference Range Comments White blood cell count (test ehzz=VGQ0841) 7.8 4.3-10.9 Blood erythrocytes count (number/volume) (test zkos=87488-4) 3.72 M/ul 3.86-4.86 Hemoglobin measurement (test bpxp=SFG3069) 11.2 g/dL 12.0-15.0 Blood hematocrit (volume fraction) (test qhve=75760-4) 33.2 % 36.0-45.0 MCV (test bpjh=49151-2) 89.2 fL 80-100 MCH (test bmik=04669-7) 30.2 pg 27.0-35.0 MCHC (test code=MCHC) 33.8 g/dL 32.0-36.0 Platelets (test code=PLT) 204 152-406 Red Cell Distribution Width (test code=RDW) 13.5 % 12.1-15.2 Blood platelet mean volume (test wxph=91917-7) 8.6 fL 7.6-11.3 Neutrophils % (test code=ALVIN%) 55.1 % 41.7-73.7 Lymphocytes/leuk NFr Bld (test ecsn=82330-5) 29.4 % 15.3-44.8 Monocyte percentage (test jmvv=6515-7) 10.0 % 3.3-12.3 Eosinophil % (test ivsk=973-4) 5.0 % 0-4.4 Basophil % (test blfg=63554-3) 0.5 % 0-1.3 Absolute neutrophil count (test qujx=129-6) 4.3 1.8-8.0 Absolute lymphocyte count (test rddv=22534-2) 2.3 0.7-4.9 Absolute monocyte count (test ihxq=399-0) 0.8 0.1-1.3 Absolute Eosinophils (test code=EOA) 0.4 0-0.5 Absolute Basophils (test code=BASA) 0.0 0-0.5 Primary Language Bahamian Primary Language [facility] Metabolic Rlsvr0037-13-62 05:46:00* Test Item Value Reference Range Comments Sodium level (test qdkx=KKZ7221) 139 meq/L 135-145 3.8 Chloride measurement (test zxyw=CYG0595) 106 meq/L 101-111 Bicarbonate (test code=CO2) 27 meq/L 21-31 Glucose measurement (test ocyg=QWJ9897) 113 mg/dL 65-120 ADA Clinical Practice Recommendation: <100 mg/dl=Normal Fasting Glucose BUN Bld-mCnc (test cdlq=3839-4) 12 mg/dL 6-20 Creatinine measurement (test xhvb=QVU9655) 0.78 mg/dL 0.44-1.00 The creatinine method used has been calibrated to be traceable to Isotope dilution Mass Spectrometry (IDMS). For more information: www.nkdep.nih.gov Estimated glomerular filtration rate (GFR) determination (test tyhr=47232-8) 73 mL =/>90 FOR CHRONIC KIDNEY DISEASE: GFR STAGE DESCRIPTION=/>90 STAGE 1 NORMAL--OR-- MINIMAL KIDNEY DAMAGE WITH NORMAL GFR 60-89 STAGE 2 MILD DECREASE IN GFR 30-59 STAGE 3 MODERATE DECREASE IN GFR 15-29 STAGE 4 SEVERE DECREASE IN GFR <15 STAGE 5 KIDNEY FAILURE The Glomerular Filtration Rate (GFR) has been calculated using the IDMS-Traceable MDRD Study Equation. Calcium Level (test code=CA) 8.2 mg/dL 8.5-10.5 Primary Language Bahamian Primary Language EnglishComplete blood count (CBC) with automated white blood cell (WBC) tdrnnjoexxpz5913-85-11 05:40:00* Test Item Value Reference Range Comments White blood cell count (test gkrm=LZP3840) 9.1 4.3-10.9 Blood erythrocytes count (number/volume) (test ddzn=06253-0) 3.61 M/ul 3.86-4.86 Hemoglobin measurement (test iawz=UKK5837) 10.9 g/dL 12.0-15.0 Blood hematocrit (volume fraction) (test qcro=14332-9) 32.5 % 36.0-45.0 MCV (test jfds=32477-8) 89.9 fL 80-100 MCH (test hwif=26936-8) 30.1 pg 27.0-35.0 MCHC (test code=MCHC) 33.5 g/dL 32.0-36.0 Platelets (test code=PLT) 182 152-406 Red Cell Distribution Width (test code=RDW) 13.6 % 12.1-15.2 Blood platelet mean volume (test hljt=66452-8) 8.8 fL 7.6-11.3 Neutrophils % (test code=ALVIN%) 60.1 % 41.7-73.7 Lymphocytes/leuk NFr Bld (test clri=72959-7) 26.7 % 15.3-44.8 Monocyte percentage (test pcoy=8713-4) 9.6 % 3.3-12.3 Eosinophil % (test rfdl=791-7) 3.4 % 0-4.4 Basophil % (test ment=53586-5) 0.2 % 0-1.3 Absolute neutrophil count (test dwei=388-1) 5.5 1.8-8.0 Absolute lymphocyte count (test yzdk=46006-8) 2.4 0.7-4.9 Absolute monocyte count (test urse=275-4) 0.9 0.1-1.3 Absolute Eosinophils (test code=EOA) 0.3 0-0.5 Absolute Basophils (test code=BASA) 0.0 0-0.5 Primary Language [place]ian [facility] Kxnxj4200-59-51 05:09:00* Test Item Value Reference Range Comments Sodium level (test uiiw=UUD0917) 138 meq/L 135-145 5.0 Chloride measurement (test exiu=HHF9735) 101 meq/L 101-111 Bicarbonate (test code=CO2) 29 meq/L 21-31 Glucose measurement (test qrrz=PTG9335) 120 mg/dL 65-120 ADA Clinical Practice Recommendation: <100 mg/dl=Normal Fasting Glucose BUN Bld-mCnc (test fetw=7702-8) 16 mg/dL 6-20 Creatinine measurement (test bwjc=ZMW6116) 0.93 mg/dL 0.44-1.00 The creatinine method used has been calibrated to be traceable to Isotope dilution Mass Spectrometry (IDMS). For more information: www.nkdep.nih.gov Estimated glomerular filtration rate (GFR) determination (test qbmb=72414-4) 60 mL =/>90 FOR CHRONIC KIDNEY DISEASE: GFR STAGE DESCRIPTION=/>90 STAGE 1 NORMAL--OR-- MINIMAL KIDNEY DAMAGE WITH NORMAL GFR 60-89 STAGE 2 MILD DECREASE IN GFR 30-59 STAGE 3 MODERATE DECREASE IN GFR 15-29 STAGE 4 SEVERE DECREASE IN GFR <15 STAGE 5 KIDNEY FAILURE The Glomerular Filtration Rate (GFR) has been calculated using the IDMS-Traceable MDRD Study Equation. Calcium Level (test code=CA) 8.7 mg/dL 8.5-10.5 Primary Language Bahamian Primary Language EnglishComplete blood count (CBC) with automated white blood cell (WBC) oausifjvytht2392-13-12 04:55:00* Test Item Value Reference Range Comments White blood cell count (test imum=FRN8458) 12.9 4.3-10.9 Blood erythrocytes count (number/volume) (test qvwm=98059-3) 4.17 M/ul 3.86-4.86 Hemoglobin measurement (test mrji=HHE8104) 12.4 g/dL 12.0-15.0 Blood hematocrit (volume fraction) (test cpss=50984-3) 37.1 % 36.0-45.0 MCV (test amxf=94218-5) 88.9 fL 80-100 MCH (test reiz=52432-1) 29.7 pg 27.0-35.0 MCHC (test code=MCHC) 33.5 g/dL 32.0-36.0 Platelets (test code=PLT) 197 152-406 Red Cell Distribution Width (test code=RDW) 13.6 % 12.1-15.2 Blood platelet mean volume (test esvx=13764-1) 8.4 fL 7.6-11.3 Neutrophils % (test code=ALVIN%) 70.2 % 41.7-73.7 Lymphocytes/leuk NFr Bld (test tfyr=04700-9) 17.9 % 15.3-44.8 Monocyte percentage (test ivef=5981-9) 10.5 % 3.3-12.3 Eosinophil % (test woya=571-0) 1.1 % 0-4.4 Basophil % (test shmi=68067-5) 0.3 % 0-1.3 Absolute neutrophil count (test sngu=197-3) 9.1 1.8-8.0 Absolute lymphocyte count (test cbrw=12085-6) 2.3 0.7-4.9 Absolute monocyte count (test pexd=563-5) 1.4 0.1-1.3 Absolute Eosinophils (test code=EOA) 0.1 0-0.5 Absolute Basophils (test code=BASA) 0.0 0-0.5 Primary Language Bahamian Primary Language EnglishMicroscopic examination of czkry7333-62-62 19:49:00* Test Item Value Reference Range Comments Urine WBC (test code=UWBC) 20-50 <5 Urine sediment erythrocyte count by microscopy (number/high power field) (test jagz=00456-1) 5 NONE SEEN Bacteria detection in urine sediment by light microscopy (test hczo=57334-1) 20-50 <20 Sqamous Epithelial (test code=SQEP) 5-10 NONE SEEN Urinalysis with reflex to culture (test uanl=40393-0) REFLEXED Mucus detection in urine sediment by light microscopy (test dtzs=9337-9) 2+ NONE SEEN Comment Bed:Urine dipstick testing at auznu-dy-drpc4246-04-12 19:29:00* Test Item Value Reference Range Comments Urine specific gravity measurement (test oueb=4839-9) 1.020 1.005-1.030 Urine glucose detection (test tkgh=4870-9) Negative NEG Urine Ketones (test code=UKET) NEGATIVE NEG Urine blood detection (test neog=06723-6) TRACE NEG Urine pH (test ycfq=5942-0) 5.5 5.0-7.0 Urinalysis with microscopy (test hsjc=19750-6) TRACE NEG Urine nitrate measurement (test qmwa=07918-6) NEGATIVE NEG Urine Leukocyte Esterase (test code=UESTR) 1+ NEG Comment Bed:26 mt TRACE NEG NEG 1+ NEG 5.5 TRACE Y 1.020Basic Metabolic Panel 2016-11-18 18:55:00* Test Item Value Reference Range Comments Sodium level (test xfyy=JOY2162) 137 meq/L 135-145 4.4 Chloride measurement (test jmje=EJW6690) 99 meq/L 101-111 Bicarbonate (test code=CO2) 28 meq/L 21-31 Glucose measurement (test hmac=JZC0174) 112 mg/dL 65-120 ADA Clinical Practice Recommendation: <100 mg/dl=Normal Fasting Glucose BUN Bld-mCnc (test xjgp=0713-0) 15 mg/dL 6-20 Creatinine measurement (test jjuk=HCA0490) 0.93 mg/dL 0.44-1.00 The creatinine method used has been calibrated to be traceable to Isotope dilution Mass Spectrometry (IDMS). For more information: www.nkdep.nih.gov Estimated glomerular filtration rate (GFR) determination (test kfkb=48279-3) 60 mL =/>90 FOR CHRONIC KIDNEY DISEASE: GFR STAGE DESCRIPTION=/>90 STAGE 1 NORMAL--OR-- MINIMAL KIDNEY DAMAGE WITH NORMAL GFR 60-89 STAGE 2 MILD DECREASE IN GFR 30-59 STAGE 3 MODERATE DECREASE IN GFR 15-29 STAGE 4 SEVERE DECREASE IN GFR <15 STAGE 5 KIDNEY FAILURE The Glomerular Filtration Rate (GFR) has been calculated using the IDMS-Traceable MDRD Study Equation. Calcium Level (test code=CA) 9.9 mg/dL 8.5-10.5 Liver (Hepatic) Ddvdersk8039-86-36 18:55:00* Test Item Value Reference Range Comments Aspartate aminotransferase (AST) measurement (test apzi=FJP5217) 23 [iU]/L 10-42 ALT/SGPT (test code=SGPT) 23 [iU]/L 10-60 Alkaline Phosphatase (test code=ALK) 76 [iU]/L 42-121 Bilirubin total (test dibk=KQF3436) 1.0 mg/dL 0.3-1.2 Bilirubin direct (test adpv=8517-4) 0.2 mg/dL 0-0.2 Serum total protein measurement (test vdoy=9961-5) 7.8 g/dL 6.0-8.3 Albumin measurement (test hsfd=XZD3183) 4.5 g/dL 3.2-5.5 Globulin (test code=GLOB) 3.3 g/dL 2.3-3.5 Albumin/Globulin Ratio (test code=A/G) 1.4 1.1-1.8 Amylase ecbkszkffig9889-03-41 18:55:00* Test Item Value Reference Range Comments Amylase measurement (test qzaf=TNN1949) 53 U/L 28-100 Lipase rposwcgaouf5772-23-20 18:55:00* Test Item Value Reference Range Comments Lipase measurement (test svry=7512-8) 19 U/L 22-51 Creatinine (Radiology Only)2016-11-18 18:47:00* Test Item Value Reference Range Comments Creatinine measurement (test kjzy=IFT8462) 0.90 mg/dL 0.44-1.00 The creatinine method used has been calibrated to be traceable to Isotope dilution Mass Spectrometry (IDMS). For more information: www.nkdep.nih.gov Estimated glomerular filtration rate (GFR) determination (test ofiu=94685-9) >60 mL >60 FOR CHRONIC KIDNEY DISEASE: GFR STAGE >60 1 or 2 30-59 3 15-29 4 <15(or dialysis) 5 The Glomerular Filtration Rate (GFR) has been calculated using the IDMS-Traceable MDRD Study Equation. Complete blood count (CBC) with automated white blood cell (WBC) differential 2016-11-18 18:44:00* Test Item Value Reference Range Comments White blood cell count (test wbxa=YGI9878) 16.2 4.3-10.9 Blood erythrocytes count (number/volume) (test bnhn=53388-9) 4.74 M/ul 3.86-4.86 Hemoglobin measurement (test lspk=XPA2736) 13.9 g/dL 12.0-15.0 Blood hematocrit (volume fraction) (test ogas=20957-2) 41.9 % 36.0-45.0 MCV (test zxuf=68315-8) 88.4 fL 80-100 MCH (test htlr=44564-0) 29.4 pg 27.0-35.0 MCHC (test code=MCHC) 33.3 g/dL 32.0-36.0 Platelets (test code=PLT) 224 152-406 Red Cell Distribution Width (test code=RDW) 13.2 % 12.1-15.2 Blood platelet mean volume (test ahec=97559-3) 8.8 fL 7.6-11.3 Neutrophils % (test code=ALVIN%) 74.8 % 41.7-73.7 Lymphocytes/leuk NFr Bld (test ujax=64281-8) 14.2 % 15.3-44.8 Monocyte percentage (test gaox=5340-7) 9.4 % 3.3-12.3 Eosinophil % (test hdfg=683-7) 1.1 % 0-4.4 Basophil % (test koju=70504-2) 0.5 % 0-1.3 Absolute neutrophil count (test tscl=188-4) 12.1 1.8-8.0 Absolute lymphocyte count (test pdlm=81968-8) 2.3 0.7-4.9 Absolute monocyte count (test xgld=153-7) 1.5 0.1-1.3 Absolute Eosinophils (test code=EOA) 0.2 0-0.5 Absolute Basophils (test code=BASA) 0.1 0-0.5 Comprehensive metabolic ypcun6007-13-19 16:31:00* Test Item Value Reference Range Comments Sodium level (test nzuk=LGG0717) 137 meq/L 135-145 4.4 Chloride measurement (test xtwf=OXX2733) 100 meq/L 101-111 Bicarbonate (test code=CO2) 31 meq/L 21-31 Glucose measurement (test bgog=ENO0175) 105 mg/dL 65-120 ADA Clinical Practice Recommendation: <100 mg/dl=Normal Fasting Glucose BUN Bld-mCnc (test ihcl=7343-8) 14 mg/dL 6-20 Creatinine measurement (test ehsy=OGD5094) 0.80 mg/dL 0.44-1.00 The creatinine method used has been calibrated to be traceable to Isotope dilution Mass Spectrometry (IDMS). For more information: www.nkdep.nih.gov Estimated glomerular filtration rate (GFR) determination (test jtfl=30430-2) 71 mL =/>90 FOR CHRONIC KIDNEY DISEASE: GFR STAGE DESCRIPTION=/>90 STAGE 1 NORMAL--OR-- MINIMAL KIDNEY DAMAGE WITH NORMAL GFR 60-89 STAGE 2 MILD DECREASE IN GFR 30-59 STAGE 3 MODERATE DECREASE IN GFR 15-29 STAGE 4 SEVERE DECREASE IN GFR <15 STAGE 5 KIDNEY FAILURE The Glomerular Filtration Rate (GFR) has been calculated using the IDMS-Traceable MDRD Study Equation. Aspartate aminotransferase (AST) measurement (test pfte=APR2553) 23 [iU]/L 10-42 ALT/SGPT (test code=SGPT) 24 [iU]/L 10-60 Alkaline Phosphatase (test code=ALK) 68 [iU]/L 42-121 Bilirubin total (test msma=NAE8691) 0.9 mg/dL 0.3-1.2 Calcium Level (test code=CA) 9.5 mg/dL 8.5-10.5 Serum total protein measurement (test nngt=6978-3) 7.3 g/dL 6.0-8.3 Albumin measurement (test khlv=JTY7599) 4.5 g/dL 3.2-5.5 Globulin (test code=GLOB) 2.8 g/dL 2.3-3.5 Albumin/Globulin Ratio (test code=A/G) 1.6 1.1-1.8 Lipid xirnyae3913-59-88 16:31:00* Test Item Value Reference Range Comments Cholesterol measurement (test ldji=SYN3802) 297 mg/dL <200 149 HDL Cholesterol (test code=HDL) 63 mg/dL 29-89 Serum or plasma cholesterol in LDL measurement by calculation (mass/volume) (test zatf=69603-7) 204 <130 This LDL is a calculated result; a more accurate analysis can be performed using the direct LDL methodology. Total cholesterol/cholesterol in HDL (percentile) (test rrcy=1060-4) 4.71 LIPID RISK RATIOS: 1/2 AVERAGE AVERAGE 2X AVERAGE 3X AVERAGE ------- MALE 3.43 4.97 9.55 23.39 FEMALE 3.27 4.44 7.05 11.04 Thyroid Stimulating Zvsspym6538-50-22 16:31:00* Test Item Value Reference Range Comments Thyroid Stimulating Hormone (test code=TSH) 1.83 [iU]/L 0.34-5.60 [place] [address] [facility] REPORT Name: ERICA KWONG Acct Number: [id number] :1945 Age:72 Sex:F Ord Phys: Dario Posey MD Unit Number: [id number] [facility] [address]: Status: REG REF RAD Exam Date: 09/10/17 EXAM DESCRIPTION: MRI - Shoulder Left Wo Cont - 09/10/2017 1:28 pm CLINICAL HISTORY: M15.0 COMPARISON: None. TECHNIQUE: Axial proton density fat saturation sequence was obtained. Para coronal T1 weighted, T2 weighted and proton density fat saturation sequences obtained along with parasagittal proton density fat sat and T2 fat-sat sequences. FINDINGS: No occult fracture, bone bruise or marrow replacing process. Edema signal is present in the AC joint space and minimally in the head of the clavicle at the AC joint. No inferiorly directed spurring. There is a lateral downward tilting of the acromion and type II configuration increasing the likelihood of shoulder impingement. Trace amount of fluid seen in the subacromion-subdeltoid bursa. Minimal irregularity of the supraspinatus tendon near the attachment site. subscapularis and infraspinatus tendons are intact. No full-thickness rotator cuff tear is identified. Patient may have some minimal partial tear of supraspinatus tendon fibers along the bursal margin. No glenoid labrum tear or significant labrum injury. Biceps tendon is normal in size, signal intensity and position. IMPRESSION: Minimal signal abnormality of the supraspinatus tendon near the insertion. Patient may have a very minimal partial tear along the bursal surface fibers. No full-thickness rotator cuff tear or tendon thickening. Active degenerative change at the AC joint. No sp urring. Configuration of the acromion increases patient risk for shoulder imping ement. Signed By: Osmar Hines MD Signed AT: 09/10/17 1417 Lumbar Spine Wo [place] [address] Name: ERICA KWONG Phys: Abdias Farley MD LAR : 1945 Age: 72 Sex:F Acct: [id number] Loc: RAD Exam Date: 07/13/17 Status: REG REF Radiology Number: Unit Number: [id number] EXAM DESCRIPTION: MRI - Lumbar Spine Wo Con - 07/13/2017 4:36 pm CLINICAL HISTORY: M54.16 COMPARISON: July 06 plain film, December 2012 MR lumbar spine TECHNIQUE: Sagittal T1-weighted, T2-weighted and T2-STIR weighted sequences were obtained. Axial T1-weighted and heavily T2-weighted sequenceswere obtained through the lumbar disc levels. FINDINGS: Lumbar bodies are normal in height. Anterior subluxation of L5 noted approximately 7-8 mm. This is new from the 2013 imaging. Alignment is otherwise unremarkable in the lumbar spine. Hemangioma is present in the central L5 body and in the right side of the L1 body. No suspicious marrow signal. No paraspinal masses. Conus is normal with no clumping or thickening of the cauda equina. T12-L1 level: No significant findings. L1-2 level: No significant findings. L2-3 level: No significant disc finding. No canal or foramen stenosis. Ligamentous thickening and facet degenerative changes are present progressive from 2013. L3-4 level: Circumferential bulging of disc material noted. No herniation. Disc disease is not substantially different from comparison. Ligamentous thickening and facet degenerative changes are present mildly progressive. L4-5 level: Mild bulging of disc material across the central canal and into each exit foramen. Disc bulge changes are not substantially different. Advanced facet joint degenerative changes are present along with ligamentous thickening. Changes have progressed. L5-S1 level: Disc is thinned and desiccated progressive from 2013. There is a minimal pseudo bulge across the central canal and into each exit foramen. This subluxation is new. S evere facet joint degenerative changes are present progressive from prior imagin g. There is reactive bone change making it difficult to evaluate for pars defect . There is a questionable pars defect on the right. Subluxation creates a mild c entral spinal stenosis of 9 mm. Mild left-sided and osuk-hb-rfwtnbar right-sided foraminal stenosis created by the subluxation. There is still some perineural f at present. IMPRESSION: Approximately 7-8 mm anterior subluxation of L5 new from 2013. This is due primarily to severe facet joint degenerative wiggins e that has progressed since 2013. There may be a pars defect on the right. L5-S1 changes cause mild central spinal stenosis to 9 mm with mild left and mil l-gb-rkxgrnyb right foraminal stenosis. L3-4 and L4-5 facet joint degenera tive change and ligamentous thickening are present and progressive from 2013. No associated subluxation. Signed By: Osmar Hines MD Signed AT: 07/13/17 1657 Lumbar Spine 3 [place] [address] Name: ERICA KWONG Phys: Abdias Farley MD LAR : 1945 Age: 72 Sex:F Acct: [id number] Loc: RAD Exam Date: 07/06/17 Status: REG REF Radiology Number: Unit Number: [id number] EXAM DESCRIPTION: Lumbar Spine 3 Views CLINICAL HISTORY: M54.12, M54.16 COMPARISON: 12/24/2001. FINDINGS: Vertebral body heights appear maintained. No compression fracture noted. Vacuum disc degeneration is noted with grade 1 anterolisthesis of L5 on S1. Prominent facet hypertrophy changes are present as well at this level. Mild to moderate aortic atherosclerosis. IMPRESSION: Degenerative disc disease with vacuum disc degeneration and grade 1 jama listhesis of L5 on S1. Signed By: Andry Vargas MD Signed AT: 07/06 1337 [facility] [place] [id number] Name: ERICA KWONG Phys: Abdias Farley MD LAR : 1945 Age: 72 Sex:F Acct: [id number] Loc: RAD Exam Date: 07/06/17 Status: REG REF Radiology Number: Unit Number: [id number] EXAM DESCRIPTION: MRI - C Spine Wo Cont CLINICAL HISTORY: M54.12, M54.16 COMPARISON: 01/29/2015, 12/20/2012. FINDINGS: Cervical vertebral bodies are normal in height and alignment. No suspicious marrow edema or marrow replacing process. No fracture or traumatic subluxation. The craniocervical junction is normal. C2-3 level: No significant findings. C3-4 level: Small posterior osteophyte/ disc complex is present attenuating the ventral subarachnoid space. Mild left- sided uncovertebral spurring is present mildly narrowing the left exit foramen. C4-5 level: Mild posterior disc bulge is present with bilateral facet hypertrophy, greater on the right. Mild right-sided exit foraminal narrowing and mild attenuation of the ventral subarachnoid space noted. C5-6 level: Prominent central disc herniation is present measuring 5 mm in anterior- posterior dimension. There is effacement of the ventral subarachnoid space and contact and deformity of the anterior aspect of the cord. Both exit foramina are moderately narrowed by a combination of disc material and facet hypertrophy. C6-7 level: Mild concentric disc bulge without canal stenosis. C7-T1 level: No significant findings. Cervical cord is normal in size and signal. IMPRESSION: Moderate C5-6 disc herniation as described above, appearing moderately progressive since 01/29/2015 study. Signed By: Andry Vargas MD Signed AT: 07/06/17 [id number]
--- OUTSIDE RECORDS SUMMARY | 2019-05-09 08:41 | XMS REPORT | Summary of Care ---
Author Author [facility] - Health Organization [facility] - Health Address Unknown Phone Unavailable Care Team Providers Care Border Machine Operator Name Role Phone Gloria Can PCP Reason for Visit * Reason Comments Follow-up Leg Pain left leg pain Encounter Details Care Team Description Date Type Department Bal Gamez, [address] [address] Pes anserinus bursitis of left knee (Primary Dx) 04/28/2019 Office Visit [facility] [address] Allergies Comments Active Allergy Reactions Severity Noted Date Codeine Palpitations 01/08/2016 Meperidine Hcl Anaphylaxis 01/08/2016 Sulfa (Sulfonamide Diarrhea 04/20/2019 Antibiotics) Tizanidine Hcl Anaphylaxis 04/20/2019 documented as of this encounter (statuses as of 04/28/2019) Medications End Date Status Medication Sig Dispensed Refills Start Date Active losartan (COZAAR) 50 mg 4 tablet 6 Active OMEPRAZOLE MAGNESIUM Take by 0 (PRILOSEC OTC ORAL) mouth. Active selexipag (UPTRAVI) 1,000 Take by 0 mcg Tab mouth. Active CITALOPRAM HYDROBROMIDE Take by 0 (CELEXA ORAL) mouth. Active CARVEDILOL ORAL Take by 0 mouth. Active naproxen 250 mg Take 1 tablet 20 tablet 0 tabletIndications: Acute by mouth 2 9 pain of right knee, (two) times Muscle strain of left daily with thigh, initial encounter meals. Active pentazocine-naloxone Take 1 tablet 5 tablet 0 50-0.5 mg by mouth 9 tabletIndications: Acute every 6 (six) pain of right knee, hours as Muscle strain of left needed for thigh, initial encounter Pain. Active cyclobenzaprine 5 mg Take 1 tablet 9 tablet 0 tabletIndications: Acute by mouth at 9 pain of right knee, bedtime. Muscle strain of left thigh, initial encounter documented as of this encounter (statuses as of 04/28/2019) Active Problems Problem Noted Date Left hand pain 01/08/2016 documented as of this encounter (statuses as of 04/28/2019) Social History Date Tobacco Use Types Packs/Day Years Used Current Every Day Smoker Cigarettes Smokeless Tobacco: Never Used Drinks/Week oz/Week Comments Alcohol Use 0 Standard drinks or equivalent 0.0 No Sex Assigned at Date Recorded Not on file Industry Job Start Date Occupation Not on file Not on file Not on file Travel End Travel History Travel Start No recent travel history available. documented as of this encounter Last Filed Vital Signs Reading Time Taken Comments Vital Sign 116/67 04/28/2019 10:19 AM CDT Blood Pressure - - Pulse - - Temperature - - Respiratory Rate - - Oxygen Saturation - - Inhaled Oxygen Concentration 86.2 kg (190 lb) 04/28/2019 10:19 AM CDT Weight 157.5 cm (5' 2") 04/28/2019 10:19 AM CDT Height 34.75 04/28/2019 10:19 AM CDT Body Mass Index documented in this encounter Progress Notes * Bal Gamez, PAC - 04/28/2019 10:45 AM CDT Cc: Chief Complaint Patient presents with Follow-up Leg Pain left leg pain Lupe Pandya is a 74 year old female. Left knee she has point tenderness at the pedis anserine bursa of her left knee it is exquisitely tender to palpate in that area. Is exacerbated with walking a nd it bothers her more at nighttime the pain wakes her up at night when you try. She has tried naproxen, chest relief, when she takes anti-inflammatories her s alivary gland skin dry and she urinates allot. Allergies Lupe is allergic to codeine; demerol [meperidine hcl]; sulfa (sulfonamide anti biotics); and zanaflex [tizanidine hcl]. Medications Outpatient Medications Prior to Visit Medication Sig Dispense Refill cyclobenzaprine 5 mg tablet Take 1 tablet by mouth at bedtime. 9 tablet 0 naproxen 250 mg tablet Take 1 tablet by mouth 2 (two) times daily with meals . 20 tablet 0 pentazocine-naloxone 50-0.5 mg tablet Take 1 tablet by mouth every 6 (six) h ours as needed for Pain. 5 tablet 0 CARVEDILOL ORAL Take by mouth. CITALOPRAM HYDROBROMIDE (CELEXA ORAL) Take by mouth. losartan (COZAAR) 50 mg tablet 4 OMEPRAZOLE MAGNESIUM (PRILOSEC OTC ORAL) Take by mouth. selexipag (UPTRAVI) 1,000 mcg Tab Take by mouth. No facility-administered medications prior to visit. Histories Past Medical History: Diagnosis Date Diverticula, colon Esophageal reflux Hypertension Left hand pain 01/08/2016 Past Surgical History: Procedure Laterality Date APPENDECTOMY MARINO BLADDER SUSPENSION CHOLECYSTECTOMY FOOT/TOES SURGERY PROC UNLISTED HYSTERECTOMY [place] PLASTIC SURGERY, NECK SPINE SURGERY TRIGGER FINGER RELEASE right thumb Social History Socioeconomic History Marital status: Spouse name: Not on file Number of children: Not on file Years of education: Not on file Highest education level: Not on file Occupational History Not on file Social Needs Financial resource strain: Not on file Food insecurity: Worry: Not on file Inability: Not on file Transportation needs: Medical: Not on file Non-medical: Not on file Tobacco Use Smoking status: Current Every Day Smoker Types: Cigarettes Smokeless tobacco: Never Used Substance and Sexual Activity Alcohol use: No Alcohol/week: 0.0 oz Drug use: No Sexual activity: Never Lifestyle Physical activity: Days per week: Not on file Minutes per session: Not on file Stress: Not on file Relationships Social connections: Talks on phone: Not on file Gets together: Not on file Attends presybeterian service: Not on file Active member of club or organization: Not on file Attends meetings of clubs or organizations: Not on file Relationship status: Not on file Intimate partner violence: Fear of current or ex partner: Not on file Emotionally abused: Not on file Physically abused: Not on file Forced sexual activity: Not on file Other Topics Concern Not on file Social History Narrative Not on file Family History Problem Relation Age of Onset Heart Father Cancer Sister Liver Heart Brother Review of Systems Constitutional: Positive for activity change. HENT: Negative. Eyes: Negative. Respiratory: Negative. Breasts: Negative. Cardiovascular: Negative. Gastrointestinal: Negative. Genitourinary: Negative. Musculoskeletal: Negative. Skin: Negative. Neurological: Negative. Psychiatric/Behavioral: Negative. Endocrine: Endocrine negative Vital Signs BP 116/67 | Ht 62" (157.5 cm) | Wt 86.2 kg (190 lb) | BMI 34.75 kg/m Physical Exam Musculoskeletal: Physical Exam Constitutional: oriented to person, place, and time. appears well-developed and well-nourished. HENT: Head: Normocephalic and atraumatic. Right Ear: External ear normal. Left Ear: External ear normal. Eyes: Conjunctivae are normal. Neck: Normal range of motion. No strabismus Neck supple. Cardiovascular: Normal rate and regular rhythm. Pulmonary/Chest: Normal respiratory rate equal chest rise and fall in no apparen t distress Abdominal: Abdomen nondistended nontender Neurological: alert and oriented to person, place, and time. No asymmetry Skin: Skin is warm and dry. Psychiatric: normal mood and affect. behavior is normal. Judgment and thought co ntent normal. Nursing note and vitals reviewed. She is exquisitely point tender to palpation of her pes anserine tendon insertio n where the pes anserine bursa is Her calf is painful to squeezing and she has some mild swelling in her ankle isai salis pedis pulse is +1 over 4 Assessment/Plan Diagnosis 1. Pes anserinus bursitis of left knee Plan Pads anserine bursitis injection, the area was examined and marked cleaned with Betadine and again with alcohol and was advanced to the pedis bursa Kenalog and Marcaine infiltrated area was cleansed with alcohol dried and a sterile Band-Aid applied documented in this encounter Plan of Treatment Health Maintenance Due Date Last Done Comments HEPATITIS C (HCV) SCREEN 1945 DTaP,Tdap,and Td Vaccines 1965 (1 - Tdap) MAMMOGRAM 1986 COLONOSCOPY 01/20/1996 Zoster Recombinant 01/20/1996 Vaccine (SHINGRIX) (1 of 2) LUNG CANCER SCREEN: 2001 Recommended for age 55-80 with 30 + pack year history Medicare Wellness Visit 2011 Osteoporosis Screening 2011 PNEUMOCOCCAL VACCINES 65+ 2011 (1 of 2 - PCV13) INFLUENZA VACCINE (#1) 2019 documented as of this encounter Results Not on filedocumented in this encounter Visit Diagnoses Diagnosis Pes anserinus bursitis of left knee - Primary Pes anserinus tendinitis or bursitis documented in this encounter Insurance Type Payer Benefit Subscriber ID Effective Phone Address Plan / Dates Group Medicare MEDICARE MEDICARE xxxxxxxxxxx 2011-P [phone] [id number] [place] [id number] 2015- Present documented as of this encounter
--- OUTSIDE RECORDS SUMMARY | 2019-05-09 08:41 | XMS REPORT | Summary of Care ---
Author Author [facility] - Health Organization [facility] - Health Address Unknown Phone Unavailable Care Team Providers Care Lieutenant/Deputy Name Role Phone Gloria Can PCP Reason for Visit * Reason Comments Follow-up Leg Pain left leg pain Encounter Details Care Team Description Date Type Department Bal Gamez, [address] [address] Pes anserinus bursitis of left knee (Primary Dx) 04/28/[address] [facility] Orthopaedic Surgery[address] [address] Allergies Comments Active Allergy Reactions [...] SUSPENSION CHOLECYSTECTOMY FOOT/TOES SURGERY PROC UNLISTED HYSTERECTOMY [place] PLASTIC SURGERY, NECK SPINE SURGERY TRIGGER FINGER [...] file Gets together: Not on file Attends sabianist service: Not on file Active member of [...] Dates Group Medicare MEDICARE MEDICARE xxxxxxxxxxx 2011-P [phone] [id number] [place] [id number] 2015- Present documented as of this encounter
--- OUTSIDE RECORDS SUMMARY | 2019-05-09 08:41 | XMS REPORT | Summary of Care ---
Author Author [facility] - Health Organization [facility] - Health Address Unknown Phone Unavailable Care Team Providers Care Licensed Sales Assistant Name Role Phone Can Castro PCP Reason for Referral * (TIMMY) Referred By Contact Referred To Contact Status Reason Specialty Diagnoses / Procedures Bal Gamez PAC [address] [place] [address] New Request Diagnoses Swelling of calf P rocedures UNILATERAL VENOUS DUPLEX LOWER EXTREMITY BY VASCULAR LAB * Radiology Services (Routine) Referred By Contact Referred To Contact Status Reason Specialty Diagnoses / Procedures Bal Gamez PAC [address] [place] [address] New Request Diagnostic Diagnoses Radiology Left knee pain, unspecified chronicity P rocedures XR KNEE <3 VW LEFT Reason for Visit * Reason Comments New Patient Knee Pain left knee pain Encounter Details Care Team Description Date Type Department Bal Gamez PAC [address] [place] [address] Swelling of calf (Primary Dx); Left knee pain, unspecified chronicity; Primary osteoarthritis of left knee; Pes anserinus bursitis of left knee 04/27/2019 Office Visit [facility] Orthopaedic Surgery- [address] [address] Allergies Comments Active Allergy Reactions Severity Noted Date Codeine Palpitations 01/08/2016 Meperidine Hcl Anaphylaxis 01/08/2016 Sulfa (Sulfonamide Diarrhea 04/20/2019 Antibiotics) Tizanidine Hcl Anaphylaxis 04/20/2019 documented as of this encounter (statuses as of 04/27/2019) Medications End Date Status Medication Sig Dispensed [...] as of this encounter (statuses as of 04/27/2019) Active Problems Problem Noted Date Left hand pain 01/08/2016 documented as of this encounter (statuses as of 04/27/2019) Social History Date Tobacco Use Types Packs/Day [...] Signs Reading Time Taken Comments Vital Sign 108/68 04/27/2019 2:18 PM CDT Blood Pressure - - Pulse - - Temperature - - Respiratory Rate - - Oxygen Saturation - - Inhaled Oxygen Concentration 86.2 kg (190 lb) 04/27/2019 2:18 PM CDT Weight 157.5 cm (5' 2") 04/27/2019 2:18 PM CDT Height 34.75 04/27/2019 2:18 PM CDT Body Mass Index documented in this encounter Progress Notes * Bal Gamez, PAC - 04/27/2019 2:30 PM CDT Cc: Chief Complaint Patient presents with New Patient Knee Pain left knee pain Lupe Pandya is a 74 year [...] SUSPENSION CHOLECYSTECTOMY FOOT/TOES SURGERY PROC UNLISTED HYSTERECTOMY [place] PLASTIC SURGERY, NECK SPINE SURGERY TRIGGER FINGER [...] file Gets together: Not on file Attends sabianism service: Not on file Active member of [...] Psychiatric/Behavioral: Negative. Endocrine: Endocrine negative Vital Signs Ht 62" (157.5 cm) | Wt 86.2 [...] is +1 over 4 Assessment/Plan Diagnosis 1. Primary osteoarthritis of left knee 2. Left knee pain, unspecified chronicity XR KNEE <3 VW LEFT 3. Pes anserinus bursitis of left knee 4. Swelling of calf Her arthritic pain would be considered minimal disease and I don't recommend chinedu nt replacement at this time. Plan Osteoarthritis is first managed with emvl-lex-sgavuru medications such as Tyleno l arthritis or anti-inflammatories without no longer working we can go to prescr iption strength anti-inflammatory medicationsNo medication is without risk anti- inflammatory's inhibit the buffy coat of the stomach which can lead to gastroint estinal bleeding. They can decrease the blood flow to the kidneys. If you're t aking an anticoagulant to prevent cardiac disease they can inhibit that anticoag ulants ability to protect you. Whether they are prescribed or [id number]-fzq-[id number]. Cortisone injections take a day to take effect and have a duration of 1-2 months you cannot get more than 3 cortisone injections in a year and may have to be at least 3 months apart If the cortisone injections work, I molecular hyaluronic acid injections are eff ective for 6 months of pain relief in 3 out of 4 people there administered one s hot a week for 3 weeks Through a combination of these conservative methods we will try as long as possi ble not to do surgery. Eventually we may need to do a total knee replacement tot al knee replacements are effective in alleviating the pain of arthritis in the k nee but there is a chance of needing revision and so we should wait as long as p ossible before doing that. No decision for surgery has been made. We are going to send her for a Doppler ultrasound now once we have the results i f she still has pain in her knee bursa we can do an injection. documented in this encounter Plan of Treatment Date/Time Name Type Priority Associated Diagnoses 04/27/2019 2:40 PM CDT XR KNEE <3 VW LEFT IMAGING Routine Left knee pain, unspecified chronicity Order Schedule Name Type Priority Associated Diagnoses Expected: 04/27/2019, Expires: 04/27/2020 XR KNEE <3 VW LEFT IMAGING Routine Left knee pain, unspecified chronicity Health Maintenance Due Date Last Done Comments [...] filedocumented in this encounter Visit Diagnoses Diagnosis Swelling of calf - Primary Swelling of limb Left knee pain, unspecified chronicity Primary osteoarthritis of left knee Primary localized osteoarthrosis, lower leg Pes anserinus bursitis of left knee Pes anserinus tendinitis or bursitis documented in this encounter Insurance Type Payer Benefit Subscriber ID Effective Phone Address Plan / Dates Group Medicare MEDICARE MEDICARE xxxxxxxxxxx 2011-P [phone] [id number] [place] [id number] 2015- Present documented as of this encounter
--- OUTSIDE RECORDS SUMMARY | 2019-05-09 08:41 | XMS REPORT | Summary of Care ---
Author Author [facility] - Health Organization [facility] - Health Address Unknown Phone Unavailable Care Team Providers Care Director Of Oncology Name Role Phone Can Castro PCP Reason for Referral * (TIMMY) Referred By Contact Referred To Contact Status Reason Specialty Diagnoses / Procedures Bal Gamez, PAC [address] [place] [address] Closed Vascular Diagnoses Sonography Swelling of calf P rocedures UNILATERAL VENOUS DUPLEX LOWER EXTREMITY BY VASCULAR LAB * (TIMMY) Referred By Contact Referred To Contact Status Reason Specialty Diagnoses / Procedures Bal Gamez, PAC [address] [place] [address] Closed Vascular Diagnoses Sonography Swelling of calf P rocedures UNILATERAL VENOUS DUPLEX LOWER EXTREMITY BY VASCULAR LAB Reason for Visit * (TIMMY) Referred By Contact Referred To Contact Status Reason Specialty Diagnoses / Procedures Bal Gamez PAC [address] [place] [address] Closed Vascular Diagnoses Sonography Swelling of calf P rocedures UNILATERAL VENOUS DUPLEX LOWER EXTREMITY BY VASCULAR LAB Encounter Details Care Team Description Date Type Department Phu Barajas MD [address] [place] [address] Edil Osman Cardio Vascular Arrived 04/27/[address] [place] [phone] Allergies Comments Active Allergy Reactions Severity Noted [...] of this encounter Last Filed Vital Signs Not on filedocumented in this encounter Plan of Treatment Care Team Description Date Type Specialty Bal Gamez, [facility] [address] [place] [phone] 04/28/2019 Office Visit Orthopedic Surgery Health Maintenance Due Date Last Done Comments [...] (#1) 2019 documented as of this encounter Procedures Comments Procedure Name Priority Date/Time Associated Diagnosis UNILATERAL VENOUS DUPLEX TIMMY 04/27/2019 Swelling of calf LOWER EXTREMITY BY 4:45 PM CDT VASCULAR LAB documented in this encounter Results Not on filedocumented in this encounter Visit Diagnoses Diagnosis Swelling of calf Swelling of limb documented in this encounter Insurance Type Payer Benefit Subscriber ID Effective Phone Address Plan / Dates Group Medicare MEDICARE MEDICARE xxxxxxxxxxx 2011-P [phone] [id number] [place] [id number] 2015- Present documented as of this encounter
--- OUTSIDE RECORDS SUMMARY | 2019-05-09 08:41 | XMS REPORT | Summary of Care ---
Author Author [facility] - Health Organization [facility] - Health Address Unknown Phone Unavailable Care Team Providers Care Behavioral Medical Director Name Role Phone Can Castro PCP Reason for Referral * (TIMMY) Referred By Contact Referred To Contact Status Reason Specialty Diagnoses / Procedures Bal Gamez PAC [address] [place] [address] New Request Diagnoses Swelling of calf P rocedures UNILATERAL VENOUS DUPLEX LOWER EXTREMITY BY VASCULAR LAB * Radiology Services (Routine) Referred By Contact Referred To Contact Status Reason Specialty Diagnoses / Procedures Bal Gamez PAC [address] [place] [address] New Request Diagnostic Diagnoses Radiology Left knee pain, unspecified chronicity P rocedures XR KNEE <3 VW LEFT Reason for Visit * Reason Comments New Patient Knee Pain left knee pain Encounter Details Care Team Description Date Type Department Bal Gamez PAC [address] [place] [address] Swelling of calf (Primary Dx); Left knee pain, unspecified chronicity; Primary osteoarthritis of left knee; Pes anserinus bursitis of left knee 04/27/2019 Office Visit [facility] Orthopaedic Surgery- [address] [address] Allergies Comments Active Allergy Reactions [...] file Gets together: Not on file Attends samaritan service: Not on file Active member of [...] time. Plan Osteoarthritis is first managed with zsuy-zkt-[id number] medications such as Tyleno l arthritis or [...] protect you. Whether they are prescribed or vtmi-sik-zypocya. Cortisone injections take a day to take [...] Dates Group Medicare MEDICARE MEDICARE xxxxxxxxxxx 2011-P [phone] [id number] [place] [phone] [id number] 2015- Present documented as of this encounter
--- OUTSIDE RECORDS SUMMARY | 2019-05-09 08:41 | XMS REPORT | Summary of Care ---
Author Author [facility] - Health Organization [facility] - Health Address Unknown Phone Unavailable Care Team Providers Care Police Service Technician Name Role Phone Can Castro PCP Reason for Visit * Radiology Services (Routine) Referred By Contact Referred To Contact Status Reason Specialty Diagnoses / Procedures Bal Gamez PAC [address] [place] [address] New Request Diagnostic Diagnoses Radiology Left knee pain, unspecified chronicity P rocedures XR KNEE <3 VW LEFT Encounter Details Care Team Description Date Type Department Bal Gamez PAC [address] [place] [address] Arrived 04/27/2019 [facility] Encounter Health Orthopedics - Radiology [address] [place] [address] Allergies Comments Active Allergy Reactions Severity [...] Care Team Description Date Type Specialty Bal Gamez S, [facility] [address] [place] [address] 04/28/2019 Office Visit Orthopedic Surgery Date/Time Name Type Priority Associated Diagnoses 04/27/2019 2:40 PM CDT XR KNEE <3 VW LEFT IMAGING Routine Left knee pain, unspecified chronicity Order Schedule Name Type Priority Associated Diagnoses 1 Occurrences starting 04/27/2019 until 04/27/2019 XR KNEE <3 VW LEFT IMAGING Routine [...] Comments Procedure Name Priority Date/Time Associated Diagnosis NOTICE OF PRIVACY Routine 04/27/2019 PRACTICES 3:46 PM CDT CONSENT/REFUSAL FOR Routine 04/27/2019 DIAGNOSIS AND TREATMENT 3:46 PM CDT ASSIGNMENT OF BENEFITS Routine 04/27/2019 3:46 PM CDT documented in this encounter Results Not on filedocumented in this encounter Visit Diagnoses Diagnosis Left knee pain, unspecified chronicity documented in this encounter Insurance Type Payer Benefit Subscriber ID Effective Phone Address Plan / Dates Group Medicare MEDICARE MEDICARE xxxxxxxxxxx 2011-P [id number] [place] [id number] 2015- Present [facility] [place] [address] documented as of this encounter
--- OUTSIDE RECORDS SUMMARY | 2019-05-09 08:41 | XMS REPORT | Summary of Care ---
Author Author [facility] - Health Organization [facility] - Health Address Unknown Phone Unavailable Care Team Providers Care Code Machine Operator Name Role Phone Can Castro PCP Reason for Visit * Reason Comments Knee Pain * Auth/Cert Referred By Contact Referred To Contact Status Reason Specialty Diagnoses / Procedures [facility] [address] [place] [address] [place] [address] Emergency Diagnoses Medicine KNEE PAIN Encounter Details Care Team Description Date Type Department Neo Ramos III, PA [address] [place] [address] [place]AS[place] [address] Muscle strain of left thigh, initial encounter (Primary Dx); Acute pain of right knee 04/20/2019 Emergency [facility] [address] [place] [address] [place] [address] Allergies Comments Active Allergy Reactions Severity Noted Date Codeine Palpitations 01/08/2016 Meperidine Hcl Anaphylaxis 01/08/2016 Sulfa (Sulfonamide Diarrhea 04/20/2019 Antibiotics) Tizanidine Hcl Anaphylaxis 04/20/2019 documented as of this encounter (statuses as of 04/20/2019) Medications End Date Status Medication Sig Dispensed [...] left needed for thigh, initial encounter Pain. 04/25/2019 Active acetaminophen (TYLENOL) Take 2 40 tablet 0 325 mg tabletIndications: tablets by 9 Acute pain of right knee, mouth 4 Muscle strain of left (four) times thigh, initial encounter daily for 5 days. This is the maximum safe dose for a healthy adult. Active cyclobenzaprine 5 mg Take 1 tablet 9 tablet 0 tabletIndications: Acute by mouth at 9 pain of right knee, bedtime. Muscle strain of left thigh, initial encounter documented as of this encounter (statuses as of 04/20/2019) Active Problems Problem Noted Date Left hand pain 01/08/2016 documented as of this encounter (statuses as of 04/20/2019) Social History Date Tobacco Use Types Packs/Day [...] Signs Reading Time Taken Comments Vital Sign 150/86 04/20/2019 8:12 PM CDT Blood Pressure 86 04/20/2019 8:12 PM CDT Pulse 36.8 C (98.3 F) 04/20/2019 8:12 PM CDT Temperature 18 04/20/2019 8:12 PM CDT Respiratory Rate 98% 04/20/2019 8:12 PM CDT Oxygen Saturation - - Inhaled Oxygen Concentration 86.2 kg (190 lb) 04/20/2019 8:12 PM CDT Weight 157.5 cm (5' 2") 04/20/2019 8:12 PM CDT Height 34.75 04/20/2019 8:12 PM CDT Body Mass Index documented in this encounter Discharge Instructions * Instructions* Neo Ramos III, PA - 04/20/2019 @@@@@@@@@@@@@@@@@@@@@@@@@@@@@@@@@@@@@@@@@@@@@@@@@@@@@ [facility] RETURN TO WORK / SCHOOL EXCUSE Lupe Pandya WAS SEEN IN THE ER AND DISCHARGED 04/20/2019 TODAY, 9:05 PM & May return to Work / School / Incarceration on 04/21/19 with No limitations unle ss indicated below. ___The following limitations apply until pt is seen by Physician and cleared to return to normal activity. ___ Light duty ___ No Sports ___ No work ___ Do not return until fever free for 24 hours. ___ No school Ed Richard [facility] [address] [place] [address] [place] [address] If you are unprepared to return to work tomorrow due to pain please give this no te to your employer and make a follow up appointment with your MD for further ev aluation and limitations. ### The patient may have been given Narcotic pain medications during their stay in the ED that may show up on a Drug Screen. The hospital discharge paper work will identify these medications. @@@@@@@@@@@@@@@@@@@@@@@@@@@@@@@@@@@@@@@@@@@@@@@@@@@@@ Thank you for trusting us with your care. The emergency room is the first stop in the medical management of your complaint . Our primary pupose is to identify life threatening emergancies and to rapidly ad dress those issues. We are releasing you today after evaluation for emergency or life threatening pr oblems related to your complaint. At this time we are comfortable that your cond ition is stable enough to go home, take oral medications and follow up for furth er care. If you can't afford a doctor OR MEDICATIONS consider [facility], [address] [place] [address]; [phone] Medications [facility] WILL SHOW YOU WHERE YOU CAN GET YOUR MEDICATIONS CHEAPEST. 1. Call your doctor and let them know you were seen for ICD-10-CM ICD-9-CM 1. Muscle strain of left thigh, initial encounter S76.912A 843.9 2. Acute pain of right knee M25.561 719.46 2. Schedule a follow up within 3 days of your ER visit. 3. Take your prescriptions to the pharmacy and get them filled today. 4. Take the medications as prescribed and until completed. 5. You have been referred for further care 6. You may need additional tests Your doctors will help you figure out what you need and how to get them done. 7. Please read all paperwork provided to you. Additional instructions See Attached It is important that you follow-up with your primary provider and continue to re turn to him so that he knows that your pain is not improving and can refer you a s appropriate. * Attachments The following attachments cannot be sent through Care Everywhere.* Strains and Sprains, Self-Care for (Ukrainian) documented in this encounter Plan of Treatment Health Maintenance Due Date Last Done Comments HEPATITIS C (HCV) SCREEN 1945 DTaP,Tdap,and Td Vaccines 1965 (1 - Tdap) MAMMOGRAM 1986 COLONOSCOPY 01/20/1996 Zoster Recombinant 01/20/1996 Vaccine (SHINGRIX) (1 of 2) Medicare Wellness Visit 2011 Osteoporosis Screening 2011 PNEUMOCOCCAL VACCINES 65+ 2011 (1 of 2 - PCV13) INFLUENZA VACCINE (#1) 2019 documented as of this encounter Procedures Comments Procedure Name Priority Date/Time Associated Diagnosis D-DIMER STAT 04/20/2019 Acute pain of right knee 8:33 PM CDT NOTICE OF PRIVACY Routine 04/20/2019 PRACTICES 8:09 PM CDT CONSENT/REFUSAL FOR Routine 04/20/2019 DIAGNOSIS AND TREATMENT 8:05 PM CDT documented in this encounter Results * D-DIMER (04/20/2019 8:33 PM CDT) D-DIMER 0.29 <0.41 g/mL (FEU) [facility] Specimen Blood - VENOUS Narrative Performed At This test may be used in conjunction with a clinical pretest probability (PTP) [facility] assessment model to exclude venous thromboembolism (VTE) in patients suspected [facility] of deep venous thrombosis (DVT) and pulmonary embolism (PE) A D-Dimer value less than 0.50 g/ml (FEU) has a negative predicative value of 96 to 100% (95% CI)and 97 to 100% (95% CI) as an aid in the diagnosis of deep vein thrombosis (DVT) and pulmonary embolism when there is low or moderate pretest probability of PE or DVT. D-Dimer values are expressed in initial fibrinogen equivalent units (FEU)" The assay results should be used with other information, including the clinical context, in forming a diagnosis. Performing Organization Address City/State/Zipcode Phone Number [facility] CLIA: [id number], [address] [place] [address] documented in this encounter Visit Diagnoses Diagnosis Muscle strain of left thigh, initial encounter - Primary Acute pain of right knee documented in this encounter Administered Medications Action Date Dose Rate Site Medication Order MAR Action 04/20/2019 9:16 PM CDT 10 mg dexamethasone (DECADRON) injection 10 mg Given 10 mg, Oral, ONCE, 1 dose, Kayleen 04/20/19 at 2215, Routine 04/20/2019 9:04 PM CDT 1 tablet HYDROcodone-acetaminophen (NORCO) 10-325 Given mg tablet 1 tablet 1 tablet, Oral, ONCE NOW, 1 dose, Kayleen 04/20/19 at 2215, Routine documented in this encounter Insurance Type Payer Benefit Subscriber ID Effective Phone Address Plan / Dates Group Medicare MEDICARE MEDICARE xxxxxxxxxxx 2011-P [phone] [id number] [place] [id number] [place] [id number] 2015- Present documented as of this encounter
--- OUTSIDE RECORDS SUMMARY | 2019-05-09 08:41 | XMS REPORT | Summary of Care ---
Author Author [facility] - Health Organization [facility] - Health Address Unknown Phone Unavailable Care Team Providers Care Filler Feeder Name Role Phone Can Castro PCP Reason for Referral * (TIMMY) Referred By Contact Referred To Contact Status Reason Specialty Diagnoses / Procedures Bal Gamez PAC [address] [place] [address] New Request Diagnoses Swelling of calf P rocedures UNILATERAL VENOUS DUPLEX LOWER EXTREMITY BY VASCULAR LAB * Radiology Services (Routine) Referred By Contact Referred To Contact Status Reason Specialty Diagnoses / Procedures Bal Gamez PAC [address] [place] [address] New Request Diagnostic Diagnoses Radiology Left knee pain, unspecified chronicity P rocedures XR KNEE <3 VW LEFT Reason for Visit * Reason Comments New Patient Knee Pain left knee pain Encounter Details Care Team Description Date Type Department Bal Gamez PAC [address] [place] [address] Swelling of calf (Primary Dx); Left knee pain, unspecified chronicity; Primary osteoarthritis of left knee; Pes anserinus bursitis of left knee 04/27/[address] [facility] Health Orthopaedic Surgery- [address] [address] Allergies Comments Active Allergy Reactions [...] SUSPENSION CHOLECYSTECTOMY FOOT/TOES SURGERY PROC UNLISTED HYSTERECTOMY LA PLASTIC SURGERY, NECK SPINE SURGERY TRIGGER FINGER [...] file Gets together: Not on file Attends anglican service: Not on file Active member of [...] time. Plan Osteoarthritis is first managed with eyal-wsl-ldmgglv medications such as Tyleno l arthritis or [...] protect you. Whether they are prescribed or akej-uer-cgzrlqj. Cortisone injections take a day to take [...] documented in this encounter Plan of Treatment Care Team Description Date Type Specialty Bal Gamez PAC [address] [place] [address] 04/28/2019 Office Visit Orthopedic Surgery [...] Dates Group Medicare MEDICARE MEDICARE xxxxxxxxxxx 2011-P [phone] [address] resent [id number] [place] [id number] 2015- Present documented as of this encounter
[2019-05-09 09:31] LABS: BASOPHILS % 0.4 % (0.0-1.0); EOSINOPHILS # (AUTO) 0.2 (0.0-0.4); EOSINOPHILS % 2.1 % (0.0-6.0); HEMATOCRIT 36.9 % (34.2-44.1); HEMOGLOBIN 11.6 g/dL (12.0-16.0); LYMPHOCYTES # (AUTO) 2.4 (1.0-3.2); LYMPHOCYTES % 26.8 % (18.0-39.1); MEAN CORPUSCULAR HEMOGLOBIN 27.8 pg (28-32); MEAN CORPUSCULAR HGB CONC 31.4 g/dL (31-35); MEAN CORPUSCULAR VOLUME 88.5 fL (81-99); MONOCYTES # (AUTO) 0.8 (0.2-0.8); MONOCYTES % 8.7 % (4.4-11.3); NEUTROPHILS # (AUTO) 5.6 (2.1-6.9); NEUTROPHILS % 61.8 % (38.7-80.0); PLATELET COUNT 254 x10e3/uL (140-360); RED BLOOD COUNT 4.17 x10e6/uL (3.6-5.1); RED CELL DISTRIBUTION WIDTH 14.1 % (11.7-14.4)
--- NOTE | 2019-05-09 10:16 | Diagnostic Imaging Report ---
TECHNIQUE: Frontal and lateral views of the chest. INDICATION: ^PRE-OP [facility] ENDO ^[id number] ^0950. COMPARISON: None. FINDINGS: LINES/TUBES: None. LUNGS: There is some streaky opacities in the left base which are likely due to atelectasis. No consolidation or pulmonary edema. PLEURA: No pleural effusion or pneumothorax. HEART AND MEDIASTINUM: The cardiomediastinal silhouette is within normal limits. SOFT TISSUES AND BONES: Prior anterior cervical disc fusion. Several surgical clips in the upper abdomen. Mild degenerative disc changes visualized spine. Calcification of the abdominal aorta. IMPRESSION: Mild left basilar subsegmental atelectasis. Otherwise, no acute cardiopulmonary abnormalities. Signed by: Rajendra Alberto JR, MD on 05/09/2019 10:13 AM
[2019-05-09 15:25] VITALS: BP 133/83
--- NOTE | 2019-05-16 14:30 | Operative Report ---
DATE OF PROCEDURE: 05/09/2019 SURGEON: Peng Steele MD PREOPERATIVE DIAGNOSIS: Lesion in the paramedian area of the soft palate with history suggestive of Sjogren syndrome. POSTOPERATIVE DIAGNOSIS: Lesion in the paramedian area of the soft palate with history suggestive of Sjogren syndrome. OPERATIVE PROCEDURE: Direct laryngoscopy, rigid esophagoscopy, rigid bronchoscopy, excisional biopsy of the lower lip minor salivary gland, and excisional biopsy of soft palate lesion both with appropriate closure. ANESTHESIA: Anesthesiology Group. INDICATIONS: This patient has a history of lesion in the paramedian area of the right soft palate. This lesion has been increasing in size and irritating to the patient. The patient also has history of fibromyalgia, which is associated with history of dry eyes and dry mouth, but the diagnosis of Sjogren was never established. On examination, she was noted to have subcutaneous nodular lesion about 0.5 cm, two of them in the paramedian area on the soft palate on the right side off the midline. It was decided that the panendoscopy, excisional biopsy of the soft palate lesion along with the biopsy for minor salivary gland and other necessary procedure will be beneficial for her. DESCRIPTION OF PROCEDURE: The patient was taken to the operating room, put under general anesthesia, endotracheally intubated. The patient was positioned. The rigid esophagoscopy was performed. The esophagoscope was passed through the cricopharyngeus muscle. The esophagus was examined to about 25 cm from the incisor. No abnormality was noted. Esophagoscope was retrieved. The rigid bronchoscopy was performed. A size #4 bronchoscope with Boyd wire was used. The bronchoscope was passed parallel to the endotracheal tube. Endotracheal tube cuff was deflated. Trachea was examined under radha. No abnormality was noted. The bronchoscope was retrieved. Endotracheal tube cuff was reinflated. The direct laryngoscopy was performed. A Dedo laryngoscope was used. Oropharynx and oral cavity were examined. Lesion in the soft palate was identified. Oropharynx and oral cavity, no other abnormality was noted. The piriform sinus on either side was examined. No abnormality was noted. The larynx was examined. Both the true and false vocal folds were examined. No abnormality was noted. The excisional biopsies were undertaken. The biopsy was undertaken first. The lower lip was retracted inferiorly and the area was injected with 1% Xylocaine with 1:100,000 epinephrine for hemostasis. A portion of the lower lip about 1 x 2 cm was excised along with multiple minor salivary gland. This was excised and sent for biopsy to rule out Sjogren. The closure of this area was undertaken. The area was irrigated with copious amount of normal saline. Any bleeding area was controlled using the bipolar cautery. The area was closed using buried 3-0 Vicryl suture in interrupted fashion. The soft palate lesion was addressed. A McIvor mouth gag was inserted. Soft palate area was injected with 1% Xylocaine with 1:100,000 epinephrine for hemostasis. An incision was made on the lesion and the mucosa was incised in the subcutaneous tissue. Submucosal area come into view. Two lesions, which was soft nodular come into view. These were excised. This was sent for permanent section. The area was irrigated with copious amount of normal saline. Any bleeding area was controlled using bipolar cautery. The incision was closed using 3-0 Vicryl suture in interrupted fashion. The patient tolerated the above procedure well with minimal blood loss. She was able to be transferred to recovery room in stable condition. MD BUTCH Steinberg/LUIS M /[id number]
== END | disposition home or self-care (01) ==
LOC: OR 08:38
PROVIDERS: ATTEND Otolaryngology Otolaryngology/Facial Plastic Surgery
DX: K13.79 Other lesions of oral mucosa (principal); R13.10 Dysphagia, unspecified; J35.03 Chronic tonsillitis and adenoiditis; I10 Essential (primary) hypertension; J44.9 Chronic obstructive pulmonary disease, unspecified; E78.5 Hyperlipidemia, unspecified; E66.01 Morbid (severe) obesity due to excess calories; K44.9 Diaphragmatic hernia without obstruction or gangrene; K21.9 Gastro-esophageal reflux disease without esophagitis; Z88.6 Allergy status to analgesic agent; Z88.0 Allergy status to penicillin; Z88.2 Allergy status to sulfonamides; F17.290 Nicotine dependence, other tobacco product, uncomplicated; Z85.828 Personal history of other malignant neoplasm of skin
CPT/HCPCS: 31525; 31622; 36415; 40490; 42100; 43191; 71046; 85025; 88305; 88342; 93005; J1100; J2001; J2250; J2405; J2550; J2704; J3010; J3490